=== PATIENT | male | born 1970 | race Hispanic/Latino ===

== ENCOUNTER 2016-08-28 05:49 | Emergency (ER) | payer OTHER ==
[~2016-08-28 05:49] MED LIST: Sodium Chloride 0.9% 100 ML BAG ONE; Sodium Chloride 0.9% 500 ML BAG ONE
[2016-08-28] MEDS ORDERED: Ondansetron HCl/PF 4 MG/2 ML Vial ONE (06:08)
[2016-08-28 06:36] LABS: #Basophils 0.2 thou/uL (0.0-0.2); #Eosinphils 0.1 thou/uL (0.0-0.7); #Monocytes 0.6 thou/uL (0.11-0.59); #Neutrophils 5.8 thou/uL (1.40-6.50); %Basophils 1.7 % (0.0-1.0); %Monocytes 6.1 % (0.0-10.0); %Neutrophils 60.1 % (42.0-75.0); Hemoglobin 14.5 g/dL (14.0-18.0); Mean Corpuscular HGB CONC 34.3 g/dL (32.0-36.0); Mean Corpuscular Hemoglobin 29.9 pg (27.0-31.0); Mean Corpuscular Volume 87.3 fl (80.0-94.0); Mean Platelet Volume 9.2 fL (7.4-10.4); Platelet Count 241 thou/uL (130-400); RBC Distribution Width 12.2 % (11.5-14.5); Red Blood Cell (RBC) Count 4.85 mill/uL (4.70-6.10); White Blood Cell (WBC) Count 9.6 thou/uL (4.8-10.8)
[2016-08-28 06:46] LABS: Bilirubin Negative (Negative); Blood, Urine Moderate (Negative); Clarity Clear (Clear); Glucose, Urine (Dipstick) >=1000 mg/dL (Negative); Leukocyte Trace (Negative); Nitrite Negative (Negative); Protein, Urine (Dipstick) Negative (Neg-Trace); Specific Gravity, Urine 1.015 (1.005-1.030); Urobilinogen 0.2 mg/dL (0.2-1.0); pH, Urine 5.5 (5.0-9.0)
[2016-08-28 06:48] LABS: Bacteria/HPF 1+ HPF (None Seen); Squamous Epithelial 0-3 HPF (0-3)
[2016-08-28 06:50] LABS: ALT (SGPT) 13 U/L (0-55); AST (SGOT) 9 U/L (5-34); Albumin 3.4 g/dL (3.5-5.0); Alkaline Phosphatase 125 U/L (40-150); Anion Gap 15 mmol/L (10-20); BUN (Urea Nitrogen) 11 mg/dL (8.9-20.6); Bilirubin, Total 0.4 mg/dL (0.2-1.2); Calc. Creatinine Clearance 0 mL/min (70-130); Calcium 8.7 mg/dL (7.8-10.44); Carbon Dioxide 21 mmol/L (22-29); Chloride 101 mmol/L (98-107); Estimated GFR-MDRD Greater than 90; Glucose 325 mg/dL (70-105); Potassium 3.9 mmol/L (3.5-5.1); Protein, Total 6.4 g/dL (6.0-8.3); Sodium 133 mmol/L (136-145)
[2016-08-28] MEDS ORDERED: Potassium Chloride 20 MEQ TAB ONE (07:02)
[2016-08-28] MEDS ORDERED: Insulin Regular 300 UNITS/3 ML VIAL ONE (07:02)
[2016-08-28] MEDS ORDERED: cefTRIAXone\\ROCEPHIN 1 GM VIAL ONE (07:02)
[2016-08-28 07:06] LABS: Amphetamine Not Detected (NotDetected); Barbiturates Screen Not Detected (NotDetected); Benzodiazepine Screen Not Detected (NotDetected); Cocaine Metabolite Screen Not Detected (NotDetected); Medtox Control Line Valid? VALID (VALID); Methadone Not Detected (NotDetected); Methamphetamine Not Detected (NotDetected); Opiate Screen Not Detected (NotDetected); Oxycodone Screen Not Detected (NotDetected); Phencyclidine (PCP) Not Detected (NotDetected); THC/Cannabinoid Screen Not Detected (NotDetected); Tricyclic Screen Not Detected (NotDetected)
[2016-08-28 07:35] LABS: CKMB 1.3 ng/mL (0-6.6); Troponin I Less than 0.010 ng/mL (< 0.028)
--- NOTE | 2016-08-28 07:40 | PICIS ---
[facility] EMERGENCY RECORD TRIAGE (05:55 JDEA) TRIAGE NOTES: pt states both ears hurt. (05:55 JDEA) PATIENT: NAME: Rosetta Malhotra, AGE: 46, GENDER: male, : Sat1970, TIME OF GREET: SatAug 28, 2016 05:49, PREFERRED LANGUAGE: Romanian, ETHNICITY: or , FALL RISK: YES, ECODE BILLING MAP: [facility], SSN: [id number], Zip Code: [address], KG WEIGHT: 95.25, PHONE: MSG#, , , PERSON ID: [id number], PCP: none. (05:55 JDEA) COMPLAINT: Ear Pain. (05:55 JDEA) ADMISSION: URGENCY: 4 Non Urgent, ADMISSION SOURCE: Home, TRANSPORT: Walk-in, BED: TRIAGE. (05:55 JDEA) IMMUNIZATIONS: Flu vaccine not up to date, Tetanus not up to date, Pneumococcal vaccine not up to date. (05:56 JDEA) TRIAGE SCREENING: Patient denies suicidal ideation, Patient denies presence of domestic violence. (05:56 JDEA) PROVIDERS: TRIAGE NURSE: Angelina Ballard RN. (05:55 JDEA) VITAL SIGNS: BP 127/94, Pulse 100, Resp 20, Temp 98.8, (Oral), Pain 8, O2 Sat 100, on Room Air, Time 08/28/2016 05:54. (05:54 JDEA) PREVIOUS VISIT ALLERGIES: No Known Drug Allergies. (05:55 JDEA) No Known Drug Allergies. (05:56 JDEA) KNOWN ALLERGIES No Known Drug Allergies CURRENT MEDICATIONS (05:55 JDEA) diabetes medication VITAL SIGNS VITAL SIGNS: BP: 127/94, Pulse: 100, Resp: 20, Temp: 98.8 (Oral), Pain: 8, O2 sat: 100 on Room Air, Time: 08/28/2016 05:54. (05:54 JDEA) BP: 114/75, Pulse: 76, Resp: 18, O2 sat: 98 on Room Air, Time: 08/28/2016 06:59. (06:59 SFRE) BP: 117/68, Pulse: 73, Resp: 18, Temp: 98.7, Pain: 0, O2 sat: 99 on RA, Time: 08/28/2016 07:29. (07:29 SFRE) NURSING ASSESSMENT: ENT (05:57 JDEA) CONSTITUTIONAL: Complex assessment performed, Patient arrives ambulatory, Gait steady, History obtained from patient, Patient appears comfortable, Patient cooperative, Patient alert, Oriented to person, place and time, Skin warm, Skin dry, Skin normal in color, Mucous membranes pink, Mucous membranes moist, Patient complains of bilateral ear pain, pt states has pain in both of his ears since this morning, states that it is making him dizzy. PAIN: aching pain, to bilateral ears, constant, on a scale 0-10 patient rates pain as 8. ENT: Ear assessment findings include ear normal to inspection, Nasal assessment findings include nose normal to inspection, Sinuses &a-1R&a+25V*p+0X*s0258W*c202B*c15G*c2P*p-0X&a-25V&a+1R Name: Rosetta Malhotra : 1970 M46 MedRec: [id number] AcctNum: [id number] Prepared: SatAug 28, 2016 09:36 by Interface Page 1 of 14 pMD [facility] EMERGENCY RECORD normal, Nasal mucosa normal, Mouth and throat assessment findings include mouth inspection normal, Uvula normal, Tonsils normal, Mucous membranes pink, and moist, Able to swallow, Speech normal, no associated fever, no associated headache. RESPIRATORY/CHEST: Breath sounds clear, Respiratory assessment findings include respiratory effort easy, Respirations regular, Conversing normally, Neck and chest exam findings include trachea midline, Chest expansion equal, Chest movement symmetrical, no signs of distress, no associated cough noted, no associated fever. NOTES: Patient tolerated procedure well. SAFETY: Side rails up, Cart/Stretcher in lowest position, Call light within reach, Hospital ID band on. NURSING PROCEDURE: BEDSIDE TESTING (06:07 JDEA) PATIENT IDENTIFIER: Patient actively involved in identification process, Patient's identity verified by hospital ID bracelet. GLUCOSE: Glucose testing indicated for diabetic patient, Capillary blood sample, Result (mg/dl) 318. FOLLOW-UP: After procedure, results given to Dr. MD Stack. SAFETY: Side rails up, Cart/Stretcher in lowest position, Call light within reach, Hospital ID band on. NURSING PROCEDURE: HOTEL MAINTENANCE TECHNICIAN (:DE) PATIENT IDENTIFIER: Patient actively involved in identification process, Patient's identity verified by hospital ID shira. HOTEL MAINTENANCE TECHNICIAN: Cardiac monitoring indicated for er indication, Patient placed on call center operations manager, Patient placed on non-invasive blood pressure monitor, Patient placed on continuous pulse oximetry. FOLLOW-UP: After procedure, alarms set and on. NOTES: Patient tolerated procedure well. NURSING PROCEDURE: DISCHARGE NOTE (:29 SFRE) DISCHARGE: Patient discharged to home, ambulating without assistance, driving self, unaccompanied, Summary of Care printed/ provided, Patient requested and was provided an electronic copy of Discharge Instructions, Discharge instructions given to patient, Simple or moderate discharge teaching performed, by ANNMARIE JAIMES, F/U WITH PCP. RX DIRECTED. RETURN TO ED NEEDED FOR NEW/CONCERNING OR WORSENING SYMPTOMS., Prescriptions given and instructions on side effects given, Name of prescription(s) given: BACTRIM, ZOFRAN, Above person(s) verbalized understanding of discharge instructions and follow-up care. VITAL SIGNS: BP: 117, / 68, Pulse: 73, Resp: 18, Temp: 98.7, Pain: 0, O2 sat: 99, on: RA. NURSING PROCEDURE: EKG CHART (:DE) PATIENT IDENTIFIER: Patient actively involved in identification process, Patient's identity verified by hospital ID shira. EKG: EKG indicated for er indication, 12 lead EKG performed on the left chest, done by Jasmyn, EKG. &a-1R&a+25V*p+0X*p1822S*c202B*c15G*c2P*p-0X&a-25V&a+1R Name: Rosetta Malhotra : 1970 M46 MedRec: [id number] AcctNum: [id number] Prepared: SatAug 28, 2016 09:36 by Interface Page 2 of 14 pMD [facility] EMERGENCY RECORD FOLLOW-UP: After procedure, EKG for interpretation given to Dr. MD Stack. NOTES: Patient tolerated procedure well. SAFETY: Side rails up, Cart/Stretcher in lowest position, Call light within reach, Hospital ID band on. NURSING PROCEDURE: IV (06:29 JDEA) PATIENT IDENITIFIER: Patient actively involved in identification process, Patient's identity verified by hospital ID bracelet. IV SITE 1: IV therapy indicated for hydration, IV therapy indicated for medication administration, IV established, to the left forearm, using an 18 gauge catheter, in one attempt, Saline lock established, Flushed with normal saline (mls): 10mls, Labs drawn at time of placement, labeled in the presence of the patient and sent to lab. FOLLOW-UP SITE 1: After procedure, 2x3 ensure dressing applied, After procedure, no drainage at IV site, After procedure, no swelling at IV site, After procedure, no redness at IV site. NURSING PROCEDURE: NURSE NOTES NURSES NOTES: Notes: report to Maranda RN at this time, states aware awaiting pending labs at this time, states giving the pt a urinal at this time for urine collection. denies needs for further assist at this time. (06:30 JDEA) Patient in no apparent distress, Notes: patient refuses to answer my questions about pain and general assessment questions. ambulatory to br to provide ua specimen. (06:36 SFRE) NURSING PROCEDURE: URINE COLLECTION (06:33 SFRE) URINE COLLECTION MALE: Urine collected by void, output amount (mL) 100, urine yellow in color, and clear, Specimen labeled in the presence of the patient and sent to lab, Specimen obtained for culture labeled in the presence of the patient and sent to lab. ORDER DETAILS Order Name: Accucheck, Status: Done, Time: 06:06 08/28/2016, User: MADI, - Ordered for: MD Stack Lefayne, - Entered by: MD Stack Lefayne - Tue Aug 28, 2016 06:04, - Quantity: 1, Order Name: HOTEL MAINTENANCE TECHNICIAN ED, Status: Done, Time: 06:06 08/28/2016, User: MADI, - Ordered for: MD Stack Lefayne, - Entered by: MD Stack Lefayne - Tue Aug 28, 2016 06:04, - Quantity: 1, Order Name: Cardiac Profile w/CKMB & Troponin - I, Status: Active, Time: 06:04 08/28/2016, User: MANOD, - Ordered for: MD Stack Lefayne, - Entered by: MD Stack Lefayne - SatAug 28, 2016 06:04, &a-1R&a+25V*p+0X*q4947J*c202B*c15G*c2P*p-0X&a-25V&a+1R Name: Rosetta Malhotra : 1970 M46 MedRec: [id number] AcctNum: [id number] Prepared: SatAug 28, 2016 09:36 by Interface Page 3 of 14 D [facility] EMERGENCY RECORD - Quantity: 1, Order Name: CBC with Differential, Status: Active, Time: 06:04 08/28/2016, User: CAEASR, - Ordered for: MD Stack Lefayne, - Entered by: MD Stack Lefayne - SatAug 28, 2016 06:04, - Quantity: 1, Order Name: Comprehensive Metabolic Panel, Status: Active, Time: 06:04 08/28/2016, User: CAESAR, - Ordered for: MD Stack Lefayne, - Entered by: MD Stack Lefayne - SatAug 28, 2016 06:04, - Quantity: 1, Order Name: Culture, Urine, Status: Active, Time: 07:00 08/28/2016, User: CAESAR, - Ordered for: MD Stack Lefayne, - Entered by: MD Stack Lefayne - SatAug 28, 2016 07:00, - Quantity: 1, Order Name: Drug Screen, Urine, Status: Active, Time: 06:15 08/28/2016, User: CAESAR, - Ordered for: MD Stack Lefayne, - Entered by: MD Stack Lefayne - pato Aug 28, 2016 06:15, - Quantity: 1, Order Name: EKG 12 Lead in Emergency Room, Status: Active, Time: 06:04 08/28/2016, User: CAESAR, - Ordered for: MD Stack Lefayne, - Entered by: MD Stack Lefayne - Tue Aug 28, 2016 06:04, - Quantity: 1, Order Name: SALINE LOCK, Status: Done, Time: 06:28 08/28/2016, User: MADI, - Ordered for: MD Stack Lefayne, - Entered by: MD Stack Lefayne - Tue Aug 28, 2016 06:04, - Quantity: 1, Order Name: Urinalysis w/ Rflx Microscopic, Status: Active, Time: 06:05 08/28/2016, User: CAESAR, - Ordered for: MD Stack Lefayne, - Entered by: MD Stack Lefayne - Tue Aug 28, 2016 06:05, - Quantity: 1. MEDICATION ADMINISTRATION SUMMARY Drug Name: Rocephin intravenous, Dose Ordered: 1 g, Route: IV Push, Status: Given, Time: 07:11 08/28/2016, Drug Name: potassium chloride oral, Dose Ordered: 20 mEq, Route: Oral, Status: Given, Time: 07:11 08/28/2016, Drug Name: HumuLIN R, Dose Ordered: 4 units, Route: Subcutaneous, Status: Given, Time: 07:10 08/28/2016, Drug Name: *Normal Saline, Dose Ordered: 500 mL, Route: IV Fluid Infusion, Status: Given, Time: 07:10 08/28/2016, Drug Name: Zofran intravenous, Dose Ordered: 8 mg, Route: IV Push, Status: Given, Time: 06:28 08/28/2016, Drug Name: *Normal Saline, Dose Ordered: 500 mL, Route: IV Fluid &a-1R&a+25V*p+0X*l1522E*c202B*c15G*c2P*p-0X&a-25V&a+1R Name: Rosetta Malhotra : 1970 M46 MedRec: [id number] AcctNum: [id number] Prepared: SatAug 28, 2016 09:36 by Interface Page 4 of 14 pMD [facility] EMERGENCY RECORD Infusion, Status: Given, Time: 06:27 08/28/2016, *Additional information available in notes, Detailed record available in Medication Service section. MEDICATION SERVICE HumuLIN R: Order: HumuLIN R (insulin regular, human) - Dose: 4 units : Subcutaneous Ordered by: Nimesh Stack MD Entered by: Nimesh Stack MD SatAug 28, 2016 06:59 Documented as given by: Jody Perez RN SatAug 28, 2016 07:10 Patient, Medication, Dose, Route and Time verified prior to administration. Amount given: 4units, Medication administered to left upper arm, Correct patient, time, route, dose and medication confirmed prior to administration, Patient advised of actions and side-effects prior to administration, Allergies confirmed and medications reviewed prior to administration, Advised not to ambulate without assistance, Patient in position of comfort, Side rails up, Cart in lowest position. Normal Saline: Order: Normal Saline (0.9 % sodium chloride) - Dose: 500 mL : IV Fluid Infusion Notes: BOLUS, THEN 250 ML/HR Ordered by: Nimesh Stack MD Entered by: Nimesh Stack MD SatAug 28, 2016 06:05 , Acknowledged by: Angelina Ballard RN SatAug 28, 2016 06:07 Documented as given by: Angelina Ballard RN SatAug 28, 2016 06:27 Patient, Medication, Dose, Route and Time verified prior to administration. Amount given: 500mls, IV SITE #1 IV fluids established for hydration, Connections checked prior to administration, Line traced prior to administration, Catheter placement confirmed via flush prior to administration, IV site without signs or symptoms of infiltration during medication administration, No swelling during administration, No drainage during administration, IV flushed after administration, Correct patient, time, route, dose and medication confirmed prior to administration, Patient advised of actions and side-effects prior to administration, Allergies confirmed and medications reviewed prior to administration, Patient in position of comfort, Side rails up, Cart in lowest position, Call light in reach. : Follow Up : Site inspection shows, No swelling at administration site, No drainage at administration site, No bleeding at site, No bruising noted at site, _IV SITE #1:_, IV fluid infusion discontinued, on SatAug 28, 2016 07:12, 45 minutes, ., Total amount infused: 500ml, IV Line flushed after administration. (07:10 SFRE) Normal Saline: Order: Normal Saline (0.9 % sodium chloride) - Dose: 500 mL : IV Fluid Infusion Notes: REPEAT FOR TOTAL OF 1 LITER IV Ordered by: Nimesh Stack MD Entered by: Nimesh Stack MD SatAug 28, 2016 07:00 Documented as given by: Jody Perez RN SatAug 28, 2016 07:10 &a-1R&a+25V*p+0X*c0892E*c202B*c15G*c2P*p-0X&a-25V&a+1R Name: Rosetta Malhotra : 1970 M46 MedRec: [id number] AcctNum: [id number] Prepared: SatAug 28, 2016 09:36 by Interface Page 5 of 14 pMD [facility] EMERGENCY RECORD Patient, Medication, Dose, Route and Time verified prior to administration. Amount given: 500ml, IV SITE #1 IV fluids established for hydration, IV SITE #1 into left forearm, IV SITE #1 2nd bag hung, amount 500ml hung, IV SITE #1 bolus of 500 ml established, IV SITE #1 Rate of bolus, wide open, via primary tubing, Awake and alert- acceptable, Catheter placement confirmed via flush prior to administration, IV site without signs or symptoms of infiltration during medication administration, No swelling during administration, No drainage during administration, IV flushed after administration, Correct patient, time, route, dose and medication confirmed prior to administration, Patient advised of actions and side-effects prior to administration, Allergies confirmed and medications reviewed prior to administration, Patient in position of comfort, Side rails up, Cart in lowest position. : Follow Up : Response assessment performed, No signs or symptoms of allergic reaction noted, Site inspection shows, No swelling at administration site, No drainage at administration site, No bleeding at site, No bruising noted at site, _IV SITE #1:_, IV fluid infusion discontinued, on SatAug 28, 2016 07:30, 20 minutes, ., Total amount infused: 500ML, IV Discontinued with catheter intact. (07:30 SFRE) potassium chloride oral: Order: potassium chloride oral (potassium chloride) - Dose: 20 mEq : Oral Ordered by: Nimesh Stack MD Entered by: Nimesh Stack MD SatAug 28, 2016 06:59 Documented as given by: Jody Perez RN SatAug 28, 2016 07:11 Patient, Medication, Dose, Route and Time verified prior to administration. Amount given: 20meq, Site: Medication administered P.O., Correct patient, time, route, dose and medication confirmed prior to administration, Patient advised of actions and side-effects prior to administration, Allergies confirmed and medications reviewed prior to administration, Patient in position of comfort, Side rails up, Cart in lowest position. Rocephin intravenous: Order: Rocephin intravenous (ceftriaxone sodium) - Dose: 1 g : IV Push Ordered by: Nimesh Stack MD Entered by: Nimesh Stack MD SatAug 28, 2016 06:58 Documented as given by: Jody Perez RN SatAug 28, 2016 07:11 Patient, Medication, Dose, Route and Time verified prior to administration. Amount given: 1g, IV SITE #1 IVPB or drip, initial infusion, IVPB mixed in: 100ml, Fluid: 0.9NS, on an IV pump, via secondary tubing, Awake and alert- acceptable, Catheter placement confirmed via flush prior to administration, IV site without signs or symptoms of infiltration during medication administration, No swelling during administration, No drainage during administration, IV flushed after administration, Correct patient, time, route, dose and medication confirmed prior to administration, Patient advised of actions and &a-1R&a+25V*p+0X*v8766E*c202B*c15G*c2P*p-0X&a-25V&a+1R Name: Rosetta Malhotra : 1970 M46 MedRec: [id number] AcctNum: [id number] Prepared: SatAug 28, 2016 09:36 by Interface Page 6 of 14 pMD [facility] EMERGENCY RECORD side-effects prior to administration, Allergies confirmed and medications reviewed prior to administration, Patient in position of comfort, Side rails up, Cart in lowest position. : Follow Up : Response assessment performed, No signs or symptoms of allergic reaction noted, Site inspection shows, No swelling at administration site, No drainage at administration site, No bleeding at site, No bruising noted at site, _IV SITE #1:_, Medication infusion discontinued, on SatAug 28, 2016 07:30, 20 minutes, ., Total amount infused: 1G, IV Discontinued with catheter intact, IV Line flushed after administration. [facility]07[facility]30 [facility] Zofran [facility]: Order: Zofran intravenous (ondansetron HCl) - Dose: 8 mg : IV Push Ordered by: Nimesh Stack MD Entered by: Nimesh Stack MD SatAug 28, 2016 06:05 , Acknowledged by: Angelina Ballard RN SatAug 28, 2016 06:07 Documented as given by: Angelina Ballard RN SatAug 28, 2016 06:28 Patient, Medication, Dose, Route and Time verified prior to administration. Amount given: 8mg, IV SITE #1 IVP, initial medication, Slowly, Connections checked prior to administration, Line traced prior to administration, Catheter placement confirmed via flush prior to administration, IV site without signs or symptoms of infiltration during medication administration, No swelling during administration, No drainage during administration, IV flushed after administration, Correct patient, time, route, dose and medication confirmed prior to administration, Patient advised of actions and side-effects prior to administration, Allergies confirmed and medications reviewed prior to administration, Patient in position of comfort, Side rails up, Cart in lowest position, Call light in reach. HPI WEAK-DIZZY CHIEF COMPLAINT: Patient presents for evaluation of dizziness, Patient presents for evaluation of lightheadedness. (06:09 LHOD) HISTORIAN: History provided by patient, PT POOR HISTORIAN. (06:09 LHOD) SEVERITY: REPORTED EAR PAIN OF 8 TO RN. REPORTS BUZZ IN EARS TO ME. (06:12 LHOD) TIME COURSE: LAST PM PT REPORTS HE WAS AT WORK AND STARTED FEELING DIZZY WITH BUZZING IN HIS EARS. REPORTS LAST HE FELT LIKE THIS "IT WAS MY SUGAR", BUT HE DOESN'T KNOW IF IT WAS HIGH OR LOW AT THAT TIME. PT TAKES METFORMIN FOR DIABETES BID. DENIES CHANGE IN DOSE OR OTHER MEDS. NO HEADACHE, JUST "BUZZING" IN EARS. HE TOLD RN HE HAD EAR PAINS. NAUSEA W/O VOMITING. NO CHEST PAIN. NO FEVER. (06:09 LHOD) ASSOCIATED WITH: No associated ataxia, No associated chest pain, No associated chills, Associated with ear pain, No associated fever, No associated gait disturbance, No associated headache, Associated with nausea, No associated palpitations, No associated vomiting, No associated visual changes. (06:13 LHOD) EXACERBATED BY: Patient's condition exacerbated by ambulating, Patient's condition exacerbated by &a-1R&a+25V*p+0X*y7599O*c202B*c15G*c2P*p-0X&a-25V&a+1R Name: Rosetta Malhotra : 1970 M46 MedRec: [id number] AcctNum: [id number] Prepared: SatAug 28, 2016 09:36 by Interface Page 7 of 14 pMD [facility] EMERGENCY RECORD STANDING. (06:13 LHOD) RELIEVED BY: Patient's condition relieved by nothing because patient has not tried anything for relief. (06:14 LHOD) ROS (06:14 LHOD) CONSTITUTIONAL: Historian denies chills, denies fever. EYES: Negative eye review of systems, Historian denies vision changes. ENT: Negative ears, nose, throat review of systems. CARDIOVASCULAR: Historian denies chest pain, denies diaphoresis, denies dyspnea on exertion, denies syncope, denies palpitations. RESPIRATORY: Historian denies cough, denies shortness of breath. GI: Historian denies abdominal pain, denies diarrhea, denies melena, reports nausea, denies vomiting. GENITOURINARY MALE: Historian denies dysuria. MUSCULOSKELETAL: Negative musculoskeletal review of systems. SKIN: Historian denies rash. NEUROLOGIC: Historian reports dizziness, denies focal weakness, denies gait changes, denies headache. HEMO/LYMPHATIC: Historian denies easy bruising. NOTES: All systems reviewed, negative except as described above. PAST MEDICAL HISTORY MEDICAL HISTORY: HAS NO DOCTOR, Past medical history includes history of diabetes, Type II, NON COMPLIANT, Past medical history includes history of hypertension, NON COMPLIANT. (05:56 JDEA) MALE SURGICAL HISTORY: Surgical history of orthopedic surgery, B/L KNEES, Surgical history of tonsillectomy, Patient's surgical history is not relevant to the management of the case, Surgical history of orthopedic surgery, LEFT KNEE. (05:56 JDEA) PSYCHIATRIC HISTORY: No previous psychiatric history. (05:56 JDEA) SOCIAL HISTORY: Patient denies alcohol use, Patient denies drug use, Patient is a former tobacco user, smoked cigarettes, Lives at home, with family. (05:56 JDEA) NOTES: Nursing records reviewed, PT HAD 6 EMERGENCY DEPT VISITS IN 2016 FOR VARIOUS COMPLAINTS. TOLD RN HE COMES TO ER FOR HIS PRIMARY CARE. (05:57 LHOD) PHYSICAL EXAM CONSTITUTIONAL: Vital signs reviewed, Patient afebrile, Pulse normal, Blood pressure normal, Respiratory rate normal, Patient alert and oriented to person, place and time, PT DOES NOT MAKE EYE CONTACT. APPEARS UNCOMFORTABLE. (06:15 LHOD) HEAD: Head exam included findings of head atraumatic. (06:15 LHOD) EYES: Pupils equally round and reactive to light, Extraocular muscles intact. (06:15 LHOD) ENT: Ear exam included findings of, left external ear with &a-1R&a+25V*p+0X*l1820V*c202B*c15G*c2P*p-0X&a-25V&a+1R Name: Rosetta Malhotra : 1970 M46 MedRec: [id number] AcctNum: [id number] Prepared: SatAug 28, 2016 09:36 by Interface Page 8 of 14 pMD [facility] EMERGENCY RECORD impacted cerumen, Pharynx exam normal, Teeth with, dental caries, LEFT UPPER INCISOR OLD CHIP WITH DECAY. (06:15 LHOD) NECK: Neck exam normal, Neck exam included findings of normal range of motion, Trachea midline, no carotid bruits. (06:15 LHOD) RESPIRATORY CHEST: Respiratory exam included findings of no respiratory distress, Breath sounds clear. (06:15 LHOD) CARDIOVASCULAR: Cardiovascular exam included findings of heart rate regular rate and rhythm, Heart sounds normal. (06:15 LHOD) ABDOMEN MALE: Abdominal exam included findings of abdomen nontender. (06:15 LHOD) BACK: Back exam normal. (06:15 LHOD) UPPER EXTREMITY: Upper extremity exam normal. (06:15 LHOD) LOWER EXTREMITY: Lower extremity exam included findings of inspection normal, Range of motion normal. (06:15 LHOD) NEURO: Neuro exam findings include patient oriented to person, place and time, Speech normal, Memory normal, Cranial nerves intact, no focal motor deficits, no focal sensory deficits, no nystagmus. (06:15 LHOD) SKIN: LOWER ABDOMEN BILATERALLY SCABBED AREAS FROM PREVIOUS LOCAL ABSCESSES. (06:15 LHOD) NOTES: Notes: I WAS ABLE TO CLEAR SOME CERUMEN FROM LEFT EAR WITH LIGHTED CURRETTE, BUT INCOMPLETELY SINCE DEEP IMPACTION. (06:29 LHOD) LAB INTERPRETATION (07:08 LHOD) INTERPRETATION: I reviewed the lab results, CBC normal, Chemistry abnormal, Sodium decreased, Glucose elevated, Bicarbonate decreased, Urinalysis abnormal, positive for leukocytes, positive for erythrocytes, positive for bacteria, positive for glucose, Urine toxicology negative. EVENTS TRANSFER: Triage to Emergency Triage. (SatAug 28, 2016 05:55 JDEA) Emergency Triage to Main ED -05. (05:55 JDEA) Removed from Emergency Main ED -05. (07:32 SFRE) EKG INTERPRETATION (06:26 LHOD) 12 LEAD EKG INTERPRETATION: 12 lead EKG interpreted by Emergency Department Physician at time of study, 12 lead EKG shows normal sinus rhythm, Rate (beats per minute): 82, with no ectopics, T waves normal, Central normal, Q WAVE IN 111, OTHERWISE UNCHANGED FROM 2015. PROBLEM LIST No recorded problems DIAGNOSIS (07:05 LHOD) FINAL: PRIMARY: UTI--CYSTITIS, ADDITIONAL: &a-1R&a+25V*p+0X*j6591K*c202B*c15G*c2P*p-0X&a-25V&a+1R Name: Rosetta Malhotra : 1970 M46 MedRec: [id number] AcctNum: [id number] Prepared: SatAug 28, 2016 09:36 by Interface Page 9 of 14 pMD [facility] EMERGENCY RECORD HYPERGLYCEMIA RELATED TO NON-INSULIN DEPENDENT DIABETES, LEFT EAR CERUMEN IMPACTION, MILD DEHYDRATION FROM ELEVATED GLUCOSE. DISPOSITION PATIENT: Disposition Type: Discharge, Disposition: *Discharge Home, Condition: Good. (07:02 LHOD) Patient left the department. (07:32 SFRE) INSTRUCTION (07:05 LHOD) DISCHARGE: DIABETIC HYPERGLYCEMIA, UTI CYSTITIS MALE ADULT, CERUMEN IMPACTION, HOME CARE. FOLLOWUP: Follow up with Primary Care Physician in 7-10 days. SPECIAL: FOLLOW UP WITH CLINIC OR PRIMARY DOCTOR IN 1 WEEK. RETURN IF WORSE. PRESCRIPTION (07:03 LHOD) Bactrim DS: TABLET : 800 mg-160 mg : ORAL : Quantity: 1 Unit: tab(s) Route: ORAL Schedule: 2 times a day Dispense: 20 May substitute. Refills: No Refills . NOTES: No Refills. Zofran ODT: TABLET, RAPID DISSOLVE : 8 mg : ORAL : Quantity: 1 Unit: tab(s) Route: ORAL Schedule: every 6 hours PRN Dispense: 3 May substitute. Refills: 2 . NOTES: ^s=No Refills No Refills. IMAGING WORK NOTE: Image captured from scanner. (07:14 SFRE) *EKG: Image captured from scanner. (07:16 SFRE) *DISCHARGE INSTRUCTIONS RECEIPT: Image captured from scanner. (07:29 SFRE) *SUPPLY CHARGE SHEET: Image captured from scanner. (07:30 SFRE) ADMIN DIGITAL SIGNATURE: ANNMARIE Perez, Jody. (07:31 SFRE) MD Seda, Nimesh. (09:27 LHOD) RESULTS LABORATORY: [place] Collection DT: SatAug 28, 2016 06:12, *Accuc[place]k 318 - H mg/dL, Range (70-110). (06:15 LHOD) Urinalysis w/ Rflx Microscopic Collection DT: SatAug 28, 2016 06:43, Color Yellow , Range (Yellow), Clarity Clear , Range (Clear), Specific [place], Urine 1.015 , Range (1.005-1.030), pH, Urine 5.5 , Range (5.0-9.0), *Leukocyte Trace - H , Range (Negative), Nitrite Negative , Range (Negative), Protein, Urine (Dipstick) Negative mg/dL, Range (Neg-Trace), *Glucose, Urine (Dipstick) >=1000 - H mg/dL, Range (Negative), &a-1R&a+25V*p+0X*[id number]*c202B*c15G*c2P*p-0X&a-25V&a+1R Name: Rosetta Malhotra : 1970 M46 MedRec: [id number] AcctNum: [id number] Prepared: SatAug 28, 2016 09:36 by Interface Page 10 of 14 pMD [facility] EMERGENCY RECORD Ketone, Urine Negative mg/dL, Range (Negative), Urobilinogen 0.2 mg/dL, Range (0.2-1.0), Bilirubin Negative , Range (Negative), *Blood, Urine Moderate - H , Range (Negative). (06:49 SFRE) CBC with Differential Collection DT: SatAug 28, 2016 06:29, See comment below , COLLECTED BY AGNELINA BALLARD RN, White Blood Cell (WBC) Count 9.6 thou/uL, Range (4.8-10.8), Red Blood Cell (RBC) Count 4.85 mill/uL, Range (4.70-6.10), Hemoglobin 14.5 g/dL, Range (14.0-18.0), Hematocrit 42.3 %, Range (42.0-52.0), Mean Corpuscular Volume 87.3 fl, Range (80.0-94.0), Mean Corpuscular Hemoglobin 29.9 pg, Range (27.0-31.0), Mean Corpuscular HGB CONC 34.3 g/dL, Range (32.0-36.0), RBC Distribution Width 12.2 %, Range (11.5-14.5), Platelet Count 241 thou/uL, Range (130-400), Mean Platelet Volume 9.2 fL, Range (7.4-10.4), %Neutrophils 60.1 %, Range (42.0-75.0), %Lymphocytes 31.0 %, Range (21.0-51.0), %Monocytes 6.1 %, Range (0.0-10.0), %Eosinophils 1.0 %, Range (0.0-10.0), *%Basophils 1.7 - H %, Range (0.0-1.0), #Neutrophils 5.8 thou/uL, Range (1.40-6.50), #Lymphocytes 3.0 thou/uL, Range (1.20-3.40), *#Monocytes 0.6 - H thou/uL, Range (0.11-0.59), #Eosinphils 0.1 thou/uL, Range (0.0-0.7), #Basophils 0.2 thou/uL, Range (0.0-0.2). (06:49 SFRE) Urine Microscopic Collection DT: SatAug 28, 2016 06:43, *RBC/HPF 7-10 - H HPF, Range (0-3), *WBC/HPF 11-20 - H HPF, Range (0-3), Squamous Epithelial 0-3 HPF, Range (0-3), *Bacteria/HPF 1+ - H HPF, Range (None Seen). (06:52 LHOD) Urinalysis w/ Rflx Microscopic Collection DT: SatAug 28, 2016 06:43, Color Yellow , Range (Yellow), Clarity Clear , Range (Clear), Specific [place], Urine 1.015 , Range (1.005-1.030), pH, Urine 5.5 , Range (5.0-9.0), *Leukocyte Trace - H , Range (Negative), Nitrite Negative , Range (Negative), Protein, Urine (Dipstick) Negative mg/dL, Range (Neg-Trace), *Glucose, Urine (Dipstick) >=1000 - H mg/dL, Range (Negative), Ketone, Urine Negative mg/dL, Range (Negative), Urobilinogen 0.2 mg/dL, Range (0.2-1.0), Bilirubin Negative , Range (Negative), *Blood, Urine Moderate - H , Range (Negative). (06:52 LHOD) Comprehensive Metabolic Panel Collection DT: SatAug 28, 2016 06:29, See comment below , COLLECTED BY ANGELINA BALLARD RN, *Sodium 133 - L mmol/L, Range (136-145), Potassium 3.9 mmol/L, Range (3.5-5.1), Chloride 101 mmol/L, Range (98-107), *Carbon Dioxide 21 - L mmol/L, Range (22-29), &a-1R&a+25V*p+0X*[id number]*c202B*c15G*c2P*p-0X&a-25V&a+1R Name: Rosetta Malhotra : 1970 M46 MedRec: [id number] AcctNum: [id number] Prepared: SatAug 28, 2016 09:36 by Interface Page 11 of 14 pMD [facility] EMERGENCY RECORD Anion Gap 15 mmol/L, Range (10-20), BUN (Urea Nitrogen) 11 mg/dL, Range (8.9-20.6), Creatinine 0.71 mg/dL, Range (0.7-1.3), Estimated GFR-MDRD Greater than 90 , Reference Range for Estimated GFR: Greater than 90, mL/min/1.73 m2 NOTE: The MDRD equation has not been validated for use, with the elderly (over 70 years of age), women, patients with, serious comorbid condition or persons with extremes of body size, muscle, mass, or nutritional status. , *Glucose 325 - H mg/dL, Range (70-105), Calcium 8.7 mg/dL, Range (7.8-10.44), Bilirubin, Total 0.4 mg/dL, Range (0.2-1.2), Protein, Total 6.4 g/dL, Range (6.0-8.3), NOTE: Plasma values are generally 0.3 to 0.5 g/dL higher than serum values, due to the presence of fibrinogen. , *Albumin 3.4 - L g/dL, Range (3.5-5.0), Globulin 3.0 g/dL, Range (2.4-3.5), *Alb/Glob Ratio 1.1 - L g/dL, Range (1.2-2.2), Alkaline Phosphatase 125 U/L, Range (40-150), AST (SGOT) 9 U/L, Range (5-34), ALT (SGPT) 13 U/L, Range (0-55). (06:55 LHOD) Drug Screen, Urine Collection DT: SatAug 28, 2016 07:05, THC/Cannabinoid Screen Not Detected , Range (NotDetected), Phencyclidine (PCP) Not Detected , Range (NotDetected), Cocaine Metabolite Screen Not Detected , Range (NotDetected), Methamphetamine Not Detected , Range (NotDetected), Opiate Screen Not Detected , Range (NotDetected), Amphetamine Not Detected , Range (NotDetected), Benzodiazepine Screen Not Detected , Range (NotDetected), Tricyclic Screen Not Detected , Range (NotDetected), Methadone Not Detected , Range (NotDetected), Barbiturates Screen Not Detected , Range (NotDetected), Oxycodone Screen Not Detected , Range (NotDetected), Propoxyphene Screen Not Detected , Range (NotDetected), Drug Screen Cutoff , Range (), The Just Got[employer] Make It Advertising Profile-V Panel for Qualitative Drugs of Abuse assays are for, presumptive screening testing only. The drug class and detection limits, are as follows: Drug Class Detection Limit Amphetamine , 500 ng/mL* Barbiturates 200 ng/mL , Benzodiazepines 150 ng/mL* Cocaine 150 ng/mL*, Methamphetamine 500 ng/mL* Methadone 200, ng/mL* Opiates 100 ng/mL* &a-1R&a+25V*p+0X*[id number]*c202B*c15G*c2P*p-0X&a-25V&a+1R Name: Rosetta Malhotra : 1970 M46 MedRec: [id number] AcctNum: [id number] Prepared: SatAug 28, 2016 09:36 by Interface Page 12 of 14 pMD [facility] EMERGENCY RECORD Oxycodone , 100 ng/mL PCP 25 ng/mL Propoxyphene , 300 ng/mL Tricyclic Antidepressants 300 ng/mL Cannabinoids (THC) , 50 ng/mL Tests which yield a presumptive positive result must be , tested using a more specific alternate chemical method in order to obtain, a confirmed analytical result. Additional confirmation and identification, may be ordered on a routine basis, if desired. Presumptive positive urines, are held for two weeks. . (07:08 LHOD) Drug Screen, Urine Collection DT: SatAug 28, 2016 07:05, THC/Cannabinoid Screen Not Detected , Range (NotDetected), Phencyclidine (PCP) Not Detected , Range (NotDetected), Cocaine Metabolite Screen Not Detected , Range (NotDetected), Methamphetamine Not Detected , Range (NotDetected), Opiate Screen Not Detected , Range (NotDetected), Amphetamine Not Detected , Range (NotDetected), Benzodiazepine Screen Not Detected , Range (NotDetected), Tricyclic Screen Not Detected , Range (NotDetected), Methadone Not Detected , Range (NotDetected), Barbiturates Screen Not Detected , Range (NotDetected), Oxycodone Screen Not Detected , Range (NotDetected), Propoxyphene Screen Not Detected , Range (NotDetected), Drug Screen Cutoff , Range (), The Just Got[employer] Make It Advertising Profile-V Panel for Qualitative Drugs of Abuse assays are for, presumptive screening testing only. The drug class and detection limits, are as follows: Drug Class Detection Limit Amphetamine , 500 ng/mL* Barbiturates 200 ng/mL , Benzodiazepines 150 ng/mL* Cocaine 150 ng/mL*, Methamphetamine 500 ng/mL* Methadone 200, ng/mL* Opiates 100 ng/mL* Oxycodone , 100 ng/mL PCP 25 ng/mL Propoxyphene , 300 ng/mL Tricyclic Antidepressants 300 ng/mL Cannabinoids (THC) , 50 ng/mL Tests which yield a presumptive positive result must be , tested using a more specific alternate chemical method in order to obtain, a confirmed analytical result. Additional confirmation and identification, may be ordered on a routine basis, if desired. Presumptive positive urines, are held for &a-1R&a+25V*p+0X*r6195R*c202B*c15G*c2P*p-0X&a-25V&a+1R Name: Rosetta Malhotra : 1970 M46 MedRec: [id number] AcctNum: [id number] Prepared: SatAug 28, 2016 09:36 by Interface Page 13 of 14 pMD [facility] EMERGENCY RECORD two weeks. . (07:08 LHOD) Drug Screen, Urine Collection DT: SatAug 28, 2016 07:05, THC/Cannabinoid Screen Not Detected , Range (NotDetected), Phencyclidine (PCP) Not Detected , Range (NotDetected), Cocaine Metabolite Screen Not Detected , Range (NotDetected), Methamphetamine Not Detected , Range (NotDetected), Opiate Screen Not Detected , Range (NotDetected), Amphetamine Not Detected , Range (NotDetected), Benzodiazepine Screen Not Detected , Range (NotDetected), Tricyclic Screen Not Detected , Range (NotDetected), Methadone Not Detected , Range (NotDetected), Barbiturates Screen Not Detected , Range (NotDetected), Oxycodone Screen Not Detected , Range (NotDetected), Propoxyphene Screen Not Detected , Range (NotDetected), Drug Screen Cutoff , Range (), The Just Gotta Make It Advertising Profile-V Panel for Qualitative Drugs of Abuse assays are for, presumptive screening testing only. The drug class and detection limits, are as follows: Drug Class Detection Limit Amphetamine , 500 ng/mL* Barbiturates 200 ng/mL , Benzodiazepines 150 ng/mL* Cocaine 150 ng/mL*, Methamphetamine 500 ng/mL* Methadone 200, ng/mL* Opiates 100 ng/mL* Oxycodone , 100 ng/mL PCP 25 ng/mL Propoxyphene , 300 ng/mL Tricyclic Antidepressants 300 ng/mL Cannabinoids (THC) , 50 ng/mL Tests which yield a presumptive positive result must be , tested using a more specific alternate chemical method in order to obtain, a confirmed analytical result. Additional confirmation and identification, may be ordered on a routine basis, if desired. Presumptive positive urines, are held for two weeks. . (07:08 LHOD) Perdomo: MADI=ANNMARIE Ballard, Angelina LHOD=MD Seda, Nimesh ELIAS=ANNMARIE Perez, Jody &a-1R&a+25V*p+0X*[id number]*c202B*c15G*c2P*p-0X&a-25V&a+1R Name: Rosetta Malhotra : 1970 M46 MedRec: [id number] AcctNum: [id number] Prepared: Lisandro Aug 28, 2016 09:36 by Interface Page 14 of 14 pMGarrett GRAY
== END 2016-08-28 07:30 | disposition home or self-care (01) ==
LOC: MADERS 05:49
DX: N30.90 Cystitis, unspecified without hematuria (principal); E11.65 Type 2 diabetes mellitus with hyperglycemia; H61.22 Impacted cerumen, left ear; E86.0 Dehydration; I10 Essential (primary) hypertension; Z87.891 Personal history of nicotine dependence
CPT/HCPCS: 36416; 80053; 80306; 81003; 81015; 82553; 84484; 85025; 87086; 93005; 96361; 96365; 96372; 96375; J0696; J1815; J2405; J7050

== ENCOUNTER 2016-12-27 05:14 | Emergency (ER) | payer OTHER ==
[2016-12-27] MEDS ORDERED: cefTRIAXone\\ROCEPHIN 1 GM VIAL ONE (05:51)
[2016-12-27] MEDS ORDERED: Phenergan/Codeine 10-6.25mg/5ml UDCUP ONE ×2 (05:51→05:53)
[2016-12-27] MEDS ORDERED: Ketorolac Tromethamine 30 MG/ML VIAL ONE (05:54)
[2016-12-27] MEDS ORDERED: Ondansetron HCl/PF 4 MG/2 ML Vial ONE (05:54)
[2016-12-27] MEDS ORDERED: Dexamethasone 10 MG/ML VIAL ONE (05:54)
[2016-12-27 06:18] LABS: #Basophils 0.2 thou/uL (0.0-0.2); #Eosinphils 0.2 thou/uL (0.0-0.7); #Lymphocytes 3.7 thou/uL (1.20-3.40); #Monocytes 0.5 thou/uL (0.11-0.59); %Basophils 2.3 % (0.0-1.0); %Eosinophils 1.9 % (0.0-10.0); %Lymphocytes 43.2 % (21.0-51.0); %Monocytes 6.1 % (0.0-10.0); %Neutrophils 46.6 % (42.0-75.0); Hemoglobin 15.2 g/dL (14.0-18.0); Mean Corpuscular HGB CONC 32.7 g/dL (32.0-36.0); Mean Corpuscular Hemoglobin 29.1 pg (27.0-31.0); Mean Corpuscular Volume 89.1 fl (80.0-94.0); Mean Platelet Volume 9.6 fL (7.4-10.4); Platelet Count 194 thou/uL (130-400); RBC Distribution Width 12.1 % (11.5-14.5); Red Blood Cell (RBC) Count 5.21 mill/uL (4.70-6.10); White Blood Cell (WBC) Count 8.7 thou/uL (4.8-10.8)
[2016-12-27 06:23] LABS: Prothrombin Time 13.1 SEC (12.0-14.7)
[2016-12-27 06:36] LABS: ALT (SGPT) 12 U/L (8-55); AST (SGOT) 9 U/L (5-34); Albumin 3.5 g/dL (3.5-5.0); Alkaline Phosphatase 129 U/L (40-150); Anion Gap 13 mmol/L (10-20); BUN (Urea Nitrogen) 12 mg/dL (8.9-20.6); Bilirubin, Total 0.4 mg/dL (0.2-1.2); CK (CPK) 25 U/L (30-200); Calc. Creatinine Clearance 0 mL/min (70-130); Calcium 9.1 mg/dL (7.8-10.44); Carbon Dioxide 24 mmol/L (22-29); Chloride 99 mmol/L (98-107); Estimated GFR-MDRD Greater than 90; Globulin 3.5 g/dL (2.4-3.5); Glucose 309 mg/dL (70-105); Potassium 4.1 mmol/L (3.5-5.1); Sodium 132 mmol/L (136-145)
[2016-12-27 06:38] LABS: CKMB 0.9 ng/mL (0-6.6); Troponin I Less than 0.010 ng/mL (< 0.028)
--- NOTE | 2016-12-27 08:10 | RAD ---
CHEST 1 VIEW: HISTORY: Cough. COMPARISON: 02/18/16. FINDINGS: The cardiac silhouette is magnified by projection. Shallow inspiration accentuates the pulmonary ma rkings. Slight elevation of the right hemidiaphragm is stable. Mediastinum is midline. There I no confluent airspace consolidation or evidence of pneumothorax. front desk monitor leads overlie the ch est. IMPRESSION: No active cardiopulmonary abnormalities are demonstrated. POS: [facility]
[2016-12-27] MEDS ORDERED: Sodium Chloride 0.9% 1,000 ML BAG ONE (13:50)
[2016-12-27] MEDS ORDERED: Sodium Chloride 0.9% 100 ML BAG ONE (13:50)
== END 2016-12-27 07:45 | disposition home or self-care (01) ==
LOC: MADERS 05:14
DX: J20.9 Acute bronchitis, unspecified (principal); E11.9 Type 2 diabetes mellitus without complications; I10 Essential (primary) hypertension; Z87.891 Personal history of nicotine dependence
CPT/HCPCS: 36416; 71010; 80053; 82553; 83880; 84484; 85025; 85610; 86140; 87040; 87081; 87430; 93005; 94640; 96365; 96375; J0696; J1100; J1885; J2405; J7050; J7620

== ENCOUNTER 2017-04-24 01:32 | Emergency (ER) | payer OTHER ==
[2017-04-24] MEDS ORDERED: Benzonatate 100 MG CAP ONE (02:30)
[2017-04-24] MEDS ORDERED: Naproxen 500 MG TAB ONE (02:30)
[2017-04-24] MEDS ORDERED: Oxymetazoline HCl 0.05% ( 15 ML ) ONE (02:30)
[2017-04-24] MEDS ORDERED: Ciprofloxacin 500 MG TAB ONE (02:30)
[2017-04-24 02:33] LABS: Bacteria/HPF None Seen HPF (None Seen); Bilirubin Negative (Negative); Blood, Urine Negative (Negative); Clarity Clear (Clear); Glucose, Urine (Dipstick) 500 mg/dL (Negative); Leukocyte Negative (Negative); Nitrite Negative (Negative); Protein, Urine (Dipstick) Negative (Neg-Trace); RBC/HPF 0-3 HPF (0-3); Squamous Epithelial 0-3 HPF (0-3); Urobilinogen 0.2 mg/dL (0.2-1.0)
[2017-04-24 02:34] LABS: Yeast-All Forms 1+ HPF (None Seen)
[2017-04-24] MEDS ORDERED: Nitrofurantoin Monohyd/M-Cryst 100 MG CAP ONE (02:46)
[2017-04-24] MEDS ORDERED: Fluconazole 100 MG TAB ONE (02:48)
== END 2017-04-24 02:55 | disposition home or self-care (01) ==
LOC: MADERS 01:32
DX: J20.9 Acute bronchitis, unspecified (principal); N39.0 Urinary tract infection, site not specified; M79.1 Myalgia; E11.9 Type 2 diabetes mellitus without complications; I10 Essential (primary) hypertension; Z87.891 Personal history of nicotine dependence
CPT/HCPCS: 81001; 87086; 99283

== ENCOUNTER 2017-07-29 05:42 | Emergency (ER) | payer OTHER ==
[2017-07-29] MEDS ORDERED: Meclizine HCl 25 MG TAB ONE (06:43)
[2017-07-29] MEDS ORDERED: Ondansetron HCl/PF 4 MG/2 ML Vial ONE (06:43)
[2017-07-29 06:48] LABS: #Basophils 0.1 thou/uL (0.0-0.2); #Eosinphils 0.1 thou/uL (0.0-0.7); #Lymphocytes 3.2 thou/uL (1.20-3.40); #Monocytes 0.5 thou/uL (0.11-0.59); #Neutrophils 4.4 thou/uL (1.40-6.50); %Eosinophils 1.2 % (0.0-10.0); %Lymphocytes 38.9 % (21.0-51.0); %Neutrophils 52.8 % (42.0-75.0); Hemoglobin 14.5 g/dL (14.0-18.0); Mean Corpuscular HGB CONC 33.5 g/dL (32.0-36.0); Mean Corpuscular Hemoglobin 29.6 pg (27.0-31.0); Mean Corpuscular Volume 88.3 fl (80.0-94.0); Mean Platelet Volume 8.7 fL (7.4-10.4); Platelet Count 224 thou/uL (130-400); RBC Distribution Width 12.2 % (11.5-14.5); Red Blood Cell (RBC) Count 4.89 mill/uL (4.70-6.10); White Blood Cell (WBC) Count 8.3 thou/uL (4.8-10.8)
[2017-07-29 07:03] LABS: INR-International Normal Ratio 1.1; PTT 32.2 SEC (22.9-36.1); Prothrombin Time 14.3 SEC (12.0-14.7)
[2017-07-29 07:06] LABS: ALT (SGPT) 12 U/L (8-55); AST (SGOT) 7 U/L (5-34); Albumin 3.3 g/dL (3.5-5.0); Alkaline Phosphatase 117 U/L (40-150); Anion Gap 13 mmol/L (10-20); BUN (Urea Nitrogen) 10 mg/dL (8.9-20.6); Bilirubin, Total 0.3 mg/dL (0.2-1.2); Calc. Creatinine Clearance 0 mL/min (70-130); Calcium 8.7 mg/dL (7.8-10.44); Carbon Dioxide 23 mmol/L (22-29); Chloride 101 mmol/L (98-107); Estimated GFR-MDRD Greater than 90; Globulin 3.2 g/dL (2.4-3.5); Glucose 349 mg/dL (70-105); Potassium 4.1 mmol/L (3.5-5.1); Protein, Total 6.5 g/dL (6.0-8.3); Sodium 133 mmol/L (136-145)
[2017-07-29 07:23] LABS: Bilirubin Negative (Negative); Blood, Urine Small (Negative); Clarity Clear (Clear); Glucose, Urine (Dipstick) >=1000 mg/dL (Negative); Leukocyte Negative (Negative); Nitrite Negative (Negative); Protein, Urine (Dipstick) Negative (Neg-Trace); RBC/HPF 0-3 HPF (0-3); Specific Gravity, Urine 1.015 (1.005-1.030); Urobilinogen 0.2 mg/dL (0.2-1.0); pH, Urine 5.5 (5.0-9.0)
[2017-07-29 07:24] LABS: Bacteria/HPF Rare-Few HPF (None Seen); Squamous Epithelial 0-3 HPF (0-3); WBC/HPF 0-3 HPF (0-3)
[2017-07-29] MEDS ORDERED: Sodium Chloride 0.9% 1,000 ML BAG ONE (07:48)
--- NOTE | 2017-07-29 08:10 | RAD ---
PORTABLE UPRIGHT FRONTAL CHEST RADIOGRAPH: Date: 07-29-17 Comparison: 12-27-16 History: Dizziness. FINDINGS: Mild elevation of the right hemidiaphragm noted. Heart and mediastinal contours are stable. No focal consolidation or alveolar edema. IMPRESSION: No acute findings. POS: [facility]
== END 2017-07-29 09:05 | disposition home or self-care (01) ==
LOC: MADERS 05:42
DX: E11.65 Type 2 diabetes mellitus with hyperglycemia (principal); I10 Essential (primary) hypertension; F17.210 Nicotine dependence, cigarettes, uncomplicated
CPT/HCPCS: 36415; 36416; 71045; 80053; 81001; 83880; 85025; 85610; 85730; 87081; 87430; 96361; 96374; J2405; J7050

== ENCOUNTER 2017-08-11 04:50 | Emergency (ER) | payer OTHER ==
[2017-08-11 05:34] LABS: Bilirubin Negative (Negative); Blood, Urine Small (Negative); Clarity Clear (Clear); Glucose, Urine (Dipstick) 500 mg/dL (Negative); Leukocyte Negative (Negative); Nitrite Negative (Negative); Protein, Urine (Dipstick) Negative (Neg-Trace); Urobilinogen 0.2 mg/dL (0.2-1.0)
[2017-08-11] MEDS ORDERED: Insulin Regular 300 UNITS/3 ML VIAL ONE (05:35)
[2017-08-11] MEDS ORDERED: Meclizine HCl 25 MG TAB ONE (05:37)
[2017-08-11] MEDS ORDERED: Ondansetron ODT 4 MG TAB ONE (05:37)
[2017-08-11 05:44] LABS: Bacteria/HPF None Seen HPF (None Seen); Squamous Epithelial 0-3 HPF (0-3); WBC/HPF 0-3 HPF (0-3)
[2017-08-11 05:47] LABS: #Basophils 0.2 thou/uL (0.0-0.2); #Eosinphils 0.1 thou/uL (0.0-0.7); #Lymphocytes 3.8 thou/uL (1.20-3.40); #Monocytes 0.8 thou/uL (0.11-0.59); #Neutrophils 7.7 thou/uL (1.40-6.50); %Basophils 1.4 % (0.0-1.0); %Eosinophils 0.9 % (0.0-10.0); %Monocytes 6.3 % (0.0-10.0); %Neutrophils 61.5 % (42.0-75.0); Hemoglobin 14.7 g/dL (14.0-18.0); Mean Corpuscular HGB CONC 32.2 g/dL (32.0-36.0); Mean Corpuscular Hemoglobin 28.7 pg (27.0-31.0); Mean Corpuscular Volume 89.3 fl (80.0-94.0); Mean Platelet Volume 9.3 fL (7.4-10.4); Platelet Count 279 thou/uL (130-400); RBC Distribution Width 12.3 % (11.5-14.5); Red Blood Cell (RBC) Count 5.12 mill/uL (4.70-6.10); White Blood Cell (WBC) Count 12.6 thou/uL (4.8-10.8)
[2017-08-11 06:01] LABS: ALT (SGPT) 12 U/L (8-55); AST (SGOT) 7 U/L (5-34); Albumin 3.4 g/dL (3.5-5.0); Alkaline Phosphatase 136 U/L (40-150); Anion Gap 14 mmol/L (10-20); BUN (Urea Nitrogen) 12 mg/dL (8.9-20.6); Bilirubin, Total 0.3 mg/dL (0.2-1.2); Calc. Creatinine Clearance 0 mL/min (70-130); Calcium 8.8 mg/dL (7.8-10.44); Carbon Dioxide 22 mmol/L (22-29); Chloride 98 mmol/L (98-107); Estimated GFR-MDRD Greater than 90; Globulin 3.5 g/dL (2.4-3.5); Glucose 394 mg/dL (70-105); Potassium 4.1 mmol/L (3.5-5.1); Protein, Total 6.9 g/dL (6.0-8.3); Sodium 130 mmol/L (136-145)
[2017-08-11] MEDS ORDERED: Sodium Chloride 0.9% 1,000 ML BAG ONE (13:17)
== END 2017-08-11 07:04 | disposition home or self-care (01) ==
LOC: MADERS 04:50
DX: E11.65 Type 2 diabetes mellitus with hyperglycemia (principal); H81.13 Benign paroxysmal vertigo, bilateral; H61.22 Impacted cerumen, left ear; E86.9 Volume depletion, unspecified; F17.210 Nicotine dependence, cigarettes, uncomplicated; Z79.84 Long term (current) use of oral hypoglycemic drugs
CPT/HCPCS: 36416; 80053; 81003; 81015; 85025; 96372; J1815; J7050; Q0162

== ENCOUNTER 2017-11-09 06:04 | Emergency (ER) | payer OTHER ==
[2017-11-09] MEDS ORDERED: methylPREDNISolone Sod Succ/PF 125 MG/2 ML VIAL ONE (06:22)
[2017-11-09] MEDS ORDERED: Morphine 10 MG/ML VIAL ONE (06:22)
[2017-11-09] MEDS ORDERED: Ondansetron HCl/PF 4 MG/2 ML Vial ONE (06:22)
[2017-11-09 06:36] LABS: #Basophils 0.1 thou/uL (0.0-0.2); #Eosinphils 0.1 thou/uL (0.0-0.7); #Lymphocytes 3.1 thou/uL (1.20-3.40); #Monocytes 0.5 thou/uL (0.11-0.59); #Neutrophils 3.6 thou/uL (1.40-6.50); %Basophils 1.5 % (0.0-1.0); %Eosinophils 1.7 % (0.0-10.0); %Lymphocytes 42.2 % (21.0-51.0); %Monocytes 6.2 % (0.0-10.0); %Neutrophils 48.4 % (42.0-75.0); Hemoglobin 16.3 g/dL (14.0-18.0); Mean Corpuscular HGB CONC 34.9 g/dL (32.0-36.0); Mean Corpuscular Hemoglobin 30.6 pg (27.0-31.0); Mean Corpuscular Volume 87.7 fl (80.0-94.0); Mean Platelet Volume 8.8 fL (7.4-10.4); Platelet Count 243 thou/uL (130-400); RBC Distribution Width 12.9 % (11.5-14.5); Red Blood Cell (RBC) Count 5.31 mill/uL (4.70-6.10); White Blood Cell (WBC) Count 7.3 thou/uL (4.8-10.8)
[2017-11-09] MEDS ORDERED: cefTRIAXone\\ROCEPHIN 1 GM VIAL ONE (06:47)
[2017-11-09 06:57] LABS: Anion Gap 14 mmol/L (10-20); BUN (Urea Nitrogen) 12 mg/dL (8.9-20.6); Calc. Creatinine Clearance 0 mL/min (70-130); Calcium 9.5 mg/dL (7.8-10.44); Carbon Dioxide 21 mmol/L (22-29); Chloride 101 mmol/L (98-107); Estimated GFR-MDRD Greater than 90; Glucose 427 mg/dL (70-105); Potassium 4.1 mmol/L (3.5-5.1); Sodium 132 mmol/L (136-145)
[2017-11-09 07:10] LABS: CKMB 0.8 ng/mL (0-6.6); Troponin I Less than 0.010 ng/mL (< 0.028)
[2017-11-09] MEDS ORDERED: Sodium Chloride 0.9% 100 ML BAG ONE (07:18)
--- NOTE | 2017-11-09 07:37 | RAD ---
PORTABLE SEMIUPRIGHT FRONTAL CHEST RADIOGRAPH: Date: 11/09/17 COMPARISON: 07/29/17. HISTORY: Dyspnea. FINDINGS: There is mild elevation of the right hemidiaphragm. Heart and mediastinal contours are stable. Lungs appear clear. IMPRESSION: No acute findings. POS: [facility]
[2017-11-09] MEDS ORDERED: Insulin Regular 300 UNITS/3 ML VIAL ONE (07:43)
== END 2017-11-09 09:05 | disposition home or self-care (01) ==
LOC: MADERS 06:04
DX: E11.65 Type 2 diabetes mellitus with hyperglycemia (principal); I10 Essential (primary) hypertension; F17.210 Nicotine dependence, cigarettes, uncomplicated; Z79.84 Long term (current) use of oral hypoglycemic drugs
CPT/HCPCS: 36415; 36416; 71045; 80048; 82553; 83880; 84484; 85025; 93005; 94760; 96374; 96375; J0696; J1815; J2270; J2405; J2930; J7050; J7620

== ENCOUNTER 2018-01-14 02:21 | Emergency (ER) | payer OTHER ==
[2018-01-14] MEDS ORDERED: Morphine 4 MG/ML VIAL ONE (04:24)
[2018-01-14] MEDS ORDERED: Ondansetron ODT 4 MG TAB ONE (04:25)
[2018-01-14] MEDS ORDERED: Ketorolac Tromethamine 30 MG/ML VIAL ONE (04:25)
[2018-01-14 04:26] LABS: #Basophils 0.2 thou/uL (0.0-0.2); #Eosinphils 0.1 thou/uL (0.0-0.7); #Lymphocytes 3.3 thou/uL (1.20-3.40); #Monocytes 0.5 thou/uL (0.11-0.59); #Neutrophils 4.8 thou/uL (1.40-6.50); %Basophils 1.9 % (0.0-1.0); %Eosinophils 1.4 % (0.0-10.0); %Monocytes 5.8 % (0.0-10.0); Hemoglobin 15.5 g/dL (14.0-18.0); Mean Corpuscular Hemoglobin 28.5 pg (27.0-31.0); Mean Corpuscular Volume 86.3 fL (78.0-98.0); Mean Platelet Volume 8.4 fL (7.4-10.4); Platelet Count 230 thou/uL (130-400); RBC Distribution Width 11.7 % (11.5-14.5); Red Blood Cell (RBC) Count 5.42 mill/uL (4.70-6.10); White Blood Cell (WBC) Count 8.9 thou/uL (4.8-10.8)
[2018-01-14 04:34] LABS: Bilirubin Negative (Negative); Blood, Urine Small (Negative); Clarity Clear (Clear); Glucose, Urine (Dipstick) 500 mg/dL (Negative); Leukocyte Negative (Negative); Nitrite Negative (Negative); Protein, Urine (Dipstick) Negative (Neg-Trace); Urobilinogen 0.2 mg/dL (0.2-1.0); pH, Urine 5.5 (5.0-9.0)
[2018-01-14 04:38] LABS: Bacteria/HPF None Seen HPF (None Seen); Squamous Epithelial 0-3 HPF (0-3); Yeast-All Forms 1+ HPF (None Seen)
[2018-01-14 04:46] LABS: ALT (SGPT) 15 U/L (8-55); AST (SGOT) 11 U/L (5-34); Albumin 3.6 g/dL (3.5-5.0); Alkaline Phosphatase 109 U/L (40-150); Anion Gap 14 mmol/L (10-20); BUN (Urea Nitrogen) 12 mg/dL (8.9-20.6); Bilirubin, Total 0.4 mg/dL (0.2-1.2); CK (CPK) 39 U/L (30-200); Calc. Creatinine Clearance 0 mL/min (70-130); Carbon Dioxide 22 mmol/L (22-29); Chloride 99 mmol/L (98-107); Estimated GFR-MDRD Greater than 90; Globulin 3.5 g/dL (2.4-3.5); Glucose 354 mg/dL (70-105); Lipase 20 U/L (8-78); Potassium 4.2 mmol/L (3.5-5.1); Protein, Total 7.1 g/dL (6.0-8.3); Sodium 131 mmol/L (136-145)
[2018-01-14] MEDS ORDERED: Insulin Regular 300 UNITS/3 ML VIAL ONE (05:05)
[2018-01-14] MEDS ORDERED: Sodium Chloride 0.9% 1,000 ML BAG ONE (07:20)
[2018-01-14] MEDS ORDERED: Sulfameth/Trimethoprim DS 800-160mg TAB ONE (07:31)
[2018-01-14] MEDS ORDERED: HYDROcodone/Acetaminophen 10/325 mg Tablet ONE (07:31)
--- NOTE | 2018-01-14 09:08 | RAD ---
SINGLE VIEW OF THE CHEST: Comparison: 11-09-17 History: Abdominal pain. FINDINGS: Single view of the chest shows a normal sized cardiomediastinal silhouette. There is no evidence of c onsolidation, mass, or pleural effusion. The bones are unremarkable. IMPRESSION: No evidence of acute cardiopulmonary disease. POS: [facility]
--- NOTE | 2018-01-14 10:50 | CT ---
PRELIMINARY REPORT/[facility]/EMERGENTY AFTER-HOURS PROCEDURE CT Abdomen and Pelvis With Intravenous Contrast CLINICAL HISTORY: 47 years old, male; Pain; Abdominal pain; Generalized; Patient HX: Bilateral abdominal pain x couple of weeks; Worse tonight TECHNIQUE: Axial computed tomography images of the abdomen and pelvis with intravenous contrast. All CT scans at this facility use at least one of these dose optimization techniques: automated exposure control; mA and/or kV adjustment per patient size (includes targeted exams where dose is matched to clinical ind ication); or iterative reconstruction. Coronal reformatted images were created and reviewed. CONTRAST: 100 ml of ISOVUE 370 administered intravenously. COMPARISON: No relevant prior studies available. FINDINGS: Lower thorax: A nodule measuring 4 mm is seen in the right lung base. A subpleural nodule measuring 4 mm is seen in the right lung base. Mild atelectasis is seen in the right lung base. Several nodules are noted in the left lung base the largest measuring 4 mm. Coronary artery calcifications are noted. ABDOMEN: Liver: Normal. No mass. Gallbladder and bile ducts: Normal. No calcified stones. No ductal dilation. Pancreas: Mild fatty replacement of the pancreas is seen. Spleen: Normal. No splenomegaly. Adrenals: Normal. No mass. Kidneys and ureters: Normal. No hydronephrosis. Stomach and bowel: Moderate amount of stool is noted in the colon. Appendix: Normal. No findings to suggest acute appendicitis. PELVIS: Bladder: The urinary bladder is underdistended. Reproductive: Unremarkable as visualized. ABDOMEN and PELVIS: Intraperitoneal space: No evidence of free air in the abdomen. Bones/joints: There are mild degenerative changes present in the spine. Soft tissues: Unremarkable. Vasculature: Mild atherosclerotic calcifications affect the aorta and its branches. Lymph nodes: Normal. No enlarged lymph nodes. IMPRESSION: 1. No acute findings. 2. Several nodules in both lung bases the largest measuring 4 mm. No followup is required if the lizzie ent is at low risk. An optional chest CT can be obtained in 12 months if patient is at high risk. Thank you for allowing us to participate in the care of your patient. Dictated and Authenticated by: Lyric Quintero MD 01/14/2018 6:59 AM Central Time (US & Sun) FINAL REPORT ABDOMEN CT WITH CONTRAST PELVIC CT WITH CONTRAST: Date: 01/14/18 HISTORY: Severe abdominal pain. Severe bilateral low back pain. COMPARISON: None. TECHNIQUE: Abdomen and pelvic CT performed with IV and oral contrast. Coronal reformatted images are submitted f or interpretation. FINDINGS: This report is in agreement with the preliminary report by [facility]. No acute abnormality in the abdomen or pelvis. Lung parenchymal nodules as described in the preliminary report by [facility], along with recomm endations as described in the preliminary report by [facility]. POS: [facility]
[2018-01-14] MEDS ORDERED: Iopamidol 370 76% 100 ML VIAL ONE (11:25)
== END 2018-01-14 08:00 | disposition home or self-care (01) ==
LOC: MADERS 02:21
DX: N39.0 Urinary tract infection, site not specified (principal); E11.65 Type 2 diabetes mellitus with hyperglycemia; I10 Essential (primary) hypertension; F17.210 Nicotine dependence, cigarettes, uncomplicated; Z79.84 Long term (current) use of oral hypoglycemic drugs
CPT/HCPCS: 36416; 71045; 74177; 80053; 81001; 82150; 82550; 83605; 83690; 85025; 87086; 96361; 96374; 96375; J1815; J1885; J2270; J7050; Q0162

== ENCOUNTER 2018-04-09 05:39 | Emergency (ER) | payer OTHER ==
[2018-04-09] MEDS ORDERED: Sodium Chloride Irrig Solution 250 ML BOT ONE (13:12)
== END 2018-04-09 06:35 | disposition home or self-care (01) ==
LOC: MADERS 05:39
DX: H61.22 Impacted cerumen, left ear (principal); E11.9 Type 2 diabetes mellitus without complications; I10 Essential (primary) hypertension; F17.210 Nicotine dependence, cigarettes, uncomplicated; Z79.84 Long term (current) use of oral hypoglycemic drugs
CPT/HCPCS: 69209

== ENCOUNTER 2018-04-16 12:55 | Emergency (ER) | payer OTHER ==
[~2018-04-16 12:55] MED LIST changes: +Sodium Chloride 0.9% 1,000 ML BAG ONE; -Sodium Chloride 0.9% 100 ML BAG ONE; -Sodium Chloride 0.9% 500 ML BAG ONE
[2018-04-16 13:29] LABS: Bilirubin Negative (Negative); Blood, Urine Moderate (Negative); Clarity Clear (Clear); Glucose, Urine (Dipstick) >=1000 mg/dL (Negative); Leukocyte Negative (Negative); Nitrite Negative (Negative); Protein, Urine (Dipstick) Trace mg/dL (Neg-Trace); Urobilinogen 0.2 mg/dL (0.2-1.0); pH, Urine 5.5 (5.0-9.0)
[2018-04-16 13:36] LABS: Specific Gravity, Urine 1.032 (1.002-1.036)
[2018-04-16 13:40] LABS: Squamous Epithelial 0-3 HPF (0-3); WBC/HPF 0-3 HPF (0-3)
[2018-04-16 13:41] LABS: Bacteria/HPF Rare-Few HPF (None Seen)
[2018-04-16 13:49] LABS: #Basophils 0.1 thou/uL (0.0-0.2); #Eosinphils 0.1 thou/uL (0.0-0.7); #Lymphocytes 3.4 thou/uL (1.20-3.40); #Monocytes 0.6 thou/uL (0.11-0.59); #Neutrophils 3.5 thou/uL (1.40-6.50); %Basophils 1.8 % (0.0-1.0); %Eosinophils 1.2 % (0.0-10.0); %Lymphocytes 44.2 % (21.0-51.0); %Monocytes 7.3 % (0.0-10.0); %Neutrophils 45.5 % (42.0-75.0); Hemoglobin 15.6 g/dL (14.0-18.0); Mean Corpuscular HGB CONC 34.3 g/dL (32.0-36.0); Mean Corpuscular Hemoglobin 30.2 pg (27.0-31.0); Mean Platelet Volume 9.7 fL (7.4-10.4); Platelet Count 247 thou/uL (130-400); RBC Distribution Width 11.8 % (11.5-14.5); Red Blood Cell (RBC) Count 5.19 mill/uL (4.70-6.10); White Blood Cell (WBC) Count 7.8 thou/uL (4.8-10.8)
[2018-04-16 13:59] LABS: ALT (SGPT) 16 U/L (8-55); AST (SGOT) 9 U/L (5-34); Albumin 3.5 g/dL (3.5-5.0); Alkaline Phosphatase 151 U/L (40-150); Anion Gap 15 mmol/L (10-20); BUN (Urea Nitrogen) 11 mg/dL (8.9-20.6); Bilirubin, Total 0.2 mg/dL (0.2-1.2); Calc. Creatinine Clearance 0 mL/min (70-130); Calcium 9.3 mg/dL (7.8-10.44); Carbon Dioxide 23 mmol/L (22-29); Chloride 96 mmol/L (98-107); Estimated GFR-MDRD 81; Globulin 3.5 g/dL (2.4-3.5); Glucose 469 mg/dL (70-105); Potassium 3.7 mmol/L (3.5-5.1); Sodium 130 mmol/L (136-145)
--- NOTE | 2018-04-16 14:05 | RAD ---
2 VIEWS CHEST: Date: 04/16/18 COMPARISON: 01/14/18. HISTORY: Cough. FINDINGS: Two views of the chest show normal sized cardiomediastinal silhouette. There is no evidence of consol idation, mass, or pleural effusion. The bones are unremarkable. IMPRESSION: No evidence of acute cardiopulmonary disease. POS: [facility]
== END 2018-04-16 15:26 | disposition home or self-care (01) ==
LOC: MADERS 12:55
DX: J11.1 Influenza due to unidentified influenza virus with other respiratory manifestations (principal); H10.9 Unspecified conjunctivitis; E11.9 Type 2 diabetes mellitus without complications; I10 Essential (primary) hypertension; F17.210 Nicotine dependence, cigarettes, uncomplicated; Z79.84 Long term (current) use of oral hypoglycemic drugs
CPT/HCPCS: 36416; 71046; 80053; 81003; 81015; 83605; 85025; 87040; 87086; 87804; 96360; 96361; J7050

== ENCOUNTER 2018-07-22 10:20 | Emergency (ER) | payer SELFPAY ==
[2018-07-22] MEDS ORDERED: Lidocaine 1% 20 ML MDV ONE (10:49)
[2018-07-22 10:59] LABS: #Basophils 0.2 thou/uL (0.0-0.2); #Eosinphils 0.1 thou/uL (0.0-0.7); #Lymphocytes 3.2 thou/uL (1.20-3.40); #Monocytes 0.7 thou/uL (0.11-0.59); #Neutrophils 4.7 thou/uL (1.40-6.50); %Basophils 1.7 % (0.0-1.0); %Eosinophils 1.4 % (0.0-10.0); %Lymphocytes 36.1 % (21.0-51.0); %Monocytes 8.3 % (0.0-10.0); %Neutrophils 52.5 % (42.0-75.0); Hemoglobin 15.7 g/dL (14.0-18.0); Mean Corpuscular HGB CONC 33.1 g/dL (32.0-36.0); Mean Corpuscular Hemoglobin 29.7 pg (27.0-31.0); Mean Corpuscular Volume 89.7 fL (78.0-98.0); Mean Platelet Volume 7.9 fL (7.4-10.4); Platelet Count 314 thou/uL (130-400); RBC Distribution Width 12.6 % (11.5-14.5); Red Blood Cell (RBC) Count 5.31 mill/uL (4.70-6.10); White Blood Cell (WBC) Count 8.9 thou/uL (4.8-10.8)
--- NOTE | 2018-07-22 11:06 | RAD ---
RIGHT BIG TOE 3 VIEWS: HISTORY: Toe infection. FINDINGS: Extensive soft tissue swelling. Some gas evident. Ill-defined osteolysis of the distal tuft with er osions along the lateral margin. No evidence of intraarticular extension. Prominent arterial calcif ications. IMPRESSION: 1. Erosive changes of the distal tuft of the right big toe are consistent with, although not specifi c for, osteomyelitis. 2. Atherosclerosis. POS: [facility]
[2018-07-22] MEDS ORDERED: cefTRIAXone\\ROCEPHIN 2 GM VIAL ONE (11:20)
[2018-07-22] MEDS ORDERED: Sodium Chloride 0.9% 250 ML 250 ML ONE ×2 (11:21)
[2018-07-22 11:23] LABS: ALT (SGPT) 15 U/L (8-55); AST (SGOT) 11 U/L (5-34); Albumin 3.6 g/dL (3.5-5.0); Alkaline Phosphatase 116 U/L (40-150); Anion Gap 14 mmol/L (10-20); BUN (Urea Nitrogen) 12 mg/dL (8.9-20.6); Bilirubin, Total 0.3 mg/dL (0.2-1.2); Calc. Creatinine Clearance 0 mL/min (70-130); Calcium 9.5 mg/dL (7.8-10.44); Carbon Dioxide 22 mmol/L (22-29); Chloride 99 mmol/L (98-107); Estimated GFR-MDRD Greater than 90; Glucose 342 mg/dL (70-105); Potassium 3.9 mmol/L (3.5-5.1); Protein, Total 7.6 g/dL (6.0-8.3); Sodium 131 mmol/L (136-145)
[2018-07-22] MEDS ORDERED: Sodium Chloride 0.9% 100 ML ONE (11:24)
[2018-07-22] MEDS ORDERED: Insulin Regular 300 UNITS/3 ML VIAL ONE (11:37)
== END 2018-07-22 12:17 | disposition short-term general hospital (02) ==
LOC: MADERS 10:20
DX: M86.9 Osteomyelitis, unspecified (principal); E11.65 Type 2 diabetes mellitus with hyperglycemia; Z71.6 Tobacco abuse counseling; E11.9 Type 2 diabetes mellitus without complications; I10 Essential (primary) hypertension; F17.210 Nicotine dependence, cigarettes, uncomplicated
CPT/HCPCS: 11765; 36415; 36416; 80053; 83605; 85025; 87040; 96365; 96368; 96375; 99406; J0696; J1815; J2001; J3370; J7050

== ENCOUNTER 2018-07-31 15:59 | Inpatient (IN) | payer OTHER ==
[2018-07-31 16:16] VITALS: BMI 35.2
[2018-07-31] MEDS ORDERED: Senokot S 8.6-50 MG TAB PO PRN (17:59)
[2018-07-31] MEDS ORDERED: Ondansetron ODT 4 MG TAB PO PRN (17:59)
[2018-07-31] MEDS ORDERED: Bisacodyl 5 MG TAB PO PRN (17:59)
[2018-07-31] MEDS ORDERED: Nicotine 7 MG PATCH TD SCH (18:00)
[2018-07-31] MEDS: traMADol HCl 50 MG TAB PO PRN (18:26)
[2018-07-31] MEDS: Lisinopril 10 MG TAB PO SCH (20:07)
[2018-07-31] MEDS: Amoxicillin/Potassium Clav 875 MG TAB PO SCH (20:08)
[2018-07-31] MEDS: Famotidine 20 MG TAB PO SCH (20:09)
[2018-07-31] MEDS: Ciprofloxacin 500 MG TAB PO SCH (20:09)
[2018-07-31] MEDS: Nicotine 7 MG PATCH TD SCH (20:11)
[2018-07-31] MEDS ORDERED: traMADol HCl 50 MG TAB PO SCH (20:15)
[2018-08-01] MEDS: Acetaminophen 325 MG TAB PO PRN ×2 (00:21→18:55)
--- NOTE | 2018-08-01 02:12 | HP ---
ADMITTING PHYSICIAN: Vivien Tijerina MD PRIMARY CARE PHYSICIAN: No PCP. REASON FOR ADMISSION: For skilled rehabilitation and wound care status post right great toe amputation due to diabetic toe infection and osteomyelitis. HISTORY OF PRESENT ILLNESS: Mr. Malhotra is a 48-year-old male with a past medical history of diabetes type 2, hypertension, vertigo, who is noncompliant with his care. The patient presented to [facility] on July 22 due to a 5 -day history of stubbing his toe to a wall,and he states that since then he has an open wound to the right great toe. The patient was seen in [facility] ER and had a toenail removal and subsequently transferred for surgical evaluation and higher level of care in [facility]. Upon admission in [facility], he was seen by ID specialist, Dr. Mcdaniels, and the patient was started on IV antibiotic. He was seen by the surgeon, Dr. Luna, who debrided his toe as the patient was scared of amputation. 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 Upon further evaluation, it was noted that vascular supply to his great toe was very questionable and this may affect the wound healing. The patient was very scared of amputation and he was convinced to have partial amputation involving the toe, this was done on July 30, 2018. The patient tolerated the procedure well and due to the amputation, his IV antibiotic was changed to p.o. antibiotic and the patient was subsequently transferred for skilled rehabilitation for wound care, PT, OT. During this hospitalization, he was started on metformin for his diabetes and alogliptin. Upon evaluation of the patient today, he was excited to start physical therapy. He complains of pain to the toe. He complains that he is scared and he does not want the toe to get further infected. He states he really understands, he needs to do better managing his diabetes and he understands he has to have wound care management and physical therapy while he is in the extended care swing bed. PAST MEDICAL HISTORY: Hypertension, diabetes type 2, and vertigo. PAST SURGICAL HISTORY: Tonsillectomy, bilateral knee surgeries, mostly arthroscopies. SOCIAL HISTORY: He works at a [employer] in [place]. He smokes tobacco daily. ALLERGIES: NONE. CURRENT MEDICATIONS: 1. Aspirin 81 mg daily. 2. Cipro 500 mg p.o. b.i.d. 3. Lisinopril 10 b.i.d. 4. Metformin 1000 b.i.d. 5. Augmentin 1 tablet p.o. b.i.d. 6. Amlodipine 5 mg daily. 7. Alogliptin 6.25 daily. 8. Tylenol No.3, 650 q.4 p.r.n. pain. FAMILY HISTORY: Noncontributory. REVIEW OF SYSTEMS: CONSTITUTIONAL: Denies weight loss or weight gain. I believe he could conduct his activities, denies any fever. EYES: Denies double vision or pain. HEENT: Denies nose bleeding or mouth sores. NECK: Denies neck stiffness or tenderness. CARDIOVASCULAR: Denies chest pain or shortness of breath. RESPIRATORY: Denies fever, cough, night sweats, or wheezing. GASTROINTESTINAL: Denies nausea, vomiting, or abdominal pain. GENITOURINARY: Denies urinary frequency, urgency, or dysuria. MUSCULOSKELETAL: Complains of pain to the toe and swelling. NEUROLOGIC: Denies depression or anxiety. ALLERGIES: Denies skin rash. PHYSICAL EXAMINATION: VITAL SIGNS: Temperature 98.0, pulse 96, respirations 19, O2 saturation 96% on room air, and blood pressure 157/86. GENERAL: Mr. Malhotra is a pleasant but very anxious male, alert, awake, oriented x3, in no apparent distress. He is overweight. HEENT: Head, atraumatic and normocephalic. Eyes; pupils are equal, reactive to light, and accommodation. Extraocular muscle movements intact. ENT, normal. NECK: Supple, nontender, no JVD. RESPIRATORY: Clear to auscultation bilaterally. No wheezing. CARDIOVASCULAR: S1 and S2 normal. ABDOMEN: Positive bowel sounds. Soft and nontender. Obese. EXTREMITIES: Right greater toe with dressing, top of foot with dressing also. Mild swelling to the foot noted. NEUROLOGIC: Alert, awake, and oriented x3. Cranial nerves 2 through 12 intact. SKIN: No rashes. ASSESSMENT: 1. Osteomyelitis. 2. Diabetic foot infection, status post amputation of the right great toe. 3. Diabetes, type 2, uncontrolled. 4. Hypertension. 5. Vertigo. 6. Tobacco abuse. PLAN: The patient will be admitted to [facility] for physical therapy, occupational therapy, and wound care. We will consult Wound Care for dressing changes. We will keep the dressing intact and change dressing for first time 48 hours after surgery, which should be tomorrow morning. We will treat the patient's pain with tramadol as needed. We will consult PT for strengthening, balance and gait training. For his diabetes, we will put the patient on strict ADA diet and aggressive sliding scale. We will continue Accu-Chek before meals and at bedtime. We will continue his blood pressure medications. We will check an A1c. We will monitor the patient closely. We will place the patient on a nicotine patch. ANTICIPATED LENGTH OF STAY: One to Two weeks. DISPOSITION: Home. CODE STATUS: The patient is a full code. Job ID: [id number] MTDD
[2018-08-01 05:11] LABS: #Basophils 0.1 thou/uL (0.0-0.2); #Eosinphils 0.2 thou/uL (0.0-0.7); #Lymphocytes 3.9 thou/uL (1.20-3.40); #Neutrophils 4.3 thou/uL (1.40-6.50); %Basophils 1.2 % (0.0-1.0); %Eosinophils 2.2 % (0.0-10.0); %Lymphocytes 41.1 % (21.0-51.0); %Monocytes 10.4 % (0.0-10.0); %Neutrophils 45.1 % (42.0-75.0); Hemoglobin 12.8 g/dL (14.0-18.0); Mean Corpuscular HGB CONC 33.2 g/dL (32.0-36.0); Mean Corpuscular Hemoglobin 29.6 pg (27.0-31.0); Mean Corpuscular Volume 89.3 fL (78.0-98.0); Mean Platelet Volume 7.6 fL (7.4-10.4); Platelet Count 268 thou/uL (130-400); RBC Distribution Width 12.4 % (11.5-14.5); Red Blood Cell (RBC) Count 4.31 mill/uL (4.70-6.10); White Blood Cell (WBC) Count 9.5 thou/uL (4.8-10.8)
[2018-08-01 05:32] LABS: ALT (SGPT) 68 U/L (8-55); AST (SGOT) 40 U/L (5-34); Albumin 3.4 g/dL (3.5-5.0); Alkaline Phosphatase 73 U/L (40-150); Anion Gap 17 mmol/L (10-20); BUN (Urea Nitrogen) 9 mg/dL (8.9-20.6); Bilirubin, Total 0.3 mg/dL (0.2-1.2); Calc. Creatinine Clearance 130 mL/min (70-130); Calcium 10.2 mg/dL (7.8-10.44); Carbon Dioxide 25 mmol/L (22-29); Chloride 106 mmol/L (98-107); Estimated GFR-MDRD 83; Globulin 3.4 g/dL (2.4-3.5); Glucose 179 mg/dL (70-105); Potassium 4.4 mmol/L (3.5-5.1); Protein, Total 6.8 g/dL (6.0-8.3); Sodium 144 mmol/L (136-145)
[2018-08-01] MEDS: Amoxicillin/Potassium Clav 875 MG TAB PO SCH ×2 (08:20→20:20)
[2018-08-01] MEDS: Amlodipine 5 MG TAB PO SCH (08:20)
[2018-08-01] MEDS: metFORMIN 500 MG TAB PO SCH ×2 (08:20→17:05)
[2018-08-01] MEDS: Ciprofloxacin 500 MG TAB PO SCH ×2 (08:20→20:23)
[2018-08-01] MEDS: Alogliptin 6.25 MG TAB PO SCH (08:20)
[2018-08-01] MEDS: Lisinopril 10 MG TAB PO SCH ×2 (08:21→20:21)
[2018-08-01] MEDS: Famotidine 20 MG TAB PO SCH ×2 (08:21→20:20)
[2018-08-01] MEDS: Enoxaparin Sodium 30 MG/0.3 ML SYRINGE SC SCH (08:23)
[2018-08-01 11:59] LABS: Hemoglobin A1c 11.2 % (4.0-6.0)
[2018-08-01] MEDS: traMADol HCl 50 MG TAB PO PRN (14:22)
[2018-08-01] MEDS: Nicotine 7 MG PATCH TD SCH (20:22)
[2018-08-02] MEDS: traMADol HCl 50 MG TAB PO PRN ×3 (05:12→21:25)
[2018-08-02] MEDS: Enoxaparin Sodium 30 MG/0.3 ML SYRINGE SC SCH (08:25)
[2018-08-02] MEDS: Amlodipine 5 MG TAB PO SCH (08:25)
[2018-08-02] MEDS: Alogliptin 6.25 MG TAB PO SCH (08:25)
[2018-08-02] MEDS: Ciprofloxacin 500 MG TAB PO SCH ×2 (08:25→21:24)
[2018-08-02] MEDS: Amoxicillin/Potassium Clav 875 MG TAB PO SCH ×2 (08:25→21:23)
[2018-08-02] MEDS: metFORMIN 500 MG TAB PO SCH ×2 (08:25→17:34)
[2018-08-02] MEDS: Lisinopril 10 MG TAB PO SCH ×2 (08:26→21:24)
[2018-08-02] MEDS: Famotidine 20 MG TAB PO SCH ×2 (08:26→21:24)
[2018-08-02] MEDS: Nicotine 7 MG PATCH TD SCH (21:23)
[2018-08-02] MEDS: Acetaminophen 325 MG TAB PO PRN (23:41)
[2018-08-03] MEDS ORDERED: traMADol HCl 50 MG TAB PO SCH (01:30)
[2018-08-03] MEDS: metFORMIN 500 MG TAB PO SCH ×2 (08:03→17:24)
[2018-08-03] MEDS: Alogliptin 6.25 MG TAB PO SCH (08:04)
[2018-08-03] MEDS: Amlodipine 5 MG TAB PO SCH (08:04)
[2018-08-03] MEDS: Ciprofloxacin 500 MG TAB PO SCH ×2 (08:06→20:26)
[2018-08-03] MEDS: Enoxaparin Sodium 30 MG/0.3 ML SYRINGE SC SCH (08:06)
[2018-08-03] MEDS: Amoxicillin/Potassium Clav 875 MG TAB PO SCH ×2 (08:06→20:26)
[2018-08-03] MEDS: Famotidine 20 MG TAB PO SCH ×2 (08:06→20:26)
[2018-08-03] MEDS: Lisinopril 10 MG TAB PO SCH ×2 (08:06→20:26)
[2018-08-03] MEDS: Nicotine 7 MG PATCH TD SCH (20:27)
[2018-08-03] MEDS: traMADol HCl 50 MG TAB PO PRN (20:27)
[2018-08-04] MEDS: Enoxaparin Sodium 30 MG/0.3 ML SYRINGE SC SCH (08:50)
[2018-08-04] MEDS: Lisinopril 10 MG TAB PO SCH ×2 (08:50→20:06)
[2018-08-04] MEDS: Amoxicillin/Potassium Clav 875 MG TAB PO SCH ×2 (08:50→20:05)
[2018-08-04] MEDS: Ciprofloxacin 500 MG TAB PO SCH ×2 (08:50→20:05)
[2018-08-04] MEDS: Alogliptin 6.25 MG TAB PO SCH (08:50)
[2018-08-04] MEDS: metFORMIN 500 MG TAB PO SCH ×2 (08:51→16:55)
[2018-08-04] MEDS: Famotidine 20 MG TAB PO SCH ×2 (08:51→20:05)
[2018-08-04] MEDS: Amlodipine 5 MG TAB PO SCH (08:51)
[2018-08-04] MEDS: traMADol HCl 50 MG TAB PO PRN (19:18)
[2018-08-04] MEDS: Nicotine 7 MG PATCH TD SCH (20:13)
[2018-08-05] MEDS: Alogliptin 6.25 MG TAB PO SCH (08:12)
[2018-08-05] MEDS: Amoxicillin/Potassium Clav 875 MG TAB PO SCH ×2 (08:12→20:34)
[2018-08-05] MEDS: Enoxaparin Sodium 30 MG/0.3 ML SYRINGE SC SCH (08:12)
[2018-08-05] MEDS: metFORMIN 500 MG TAB PO SCH ×2 (08:12→17:18)
[2018-08-05] MEDS: Lisinopril 10 MG TAB PO SCH ×2 (08:12→20:34)
[2018-08-05] MEDS: Amlodipine 5 MG TAB PO SCH (08:13)
[2018-08-05] MEDS: Famotidine 20 MG TAB PO SCH ×2 (08:13→20:34)
[2018-08-05] MEDS: Ciprofloxacin 500 MG TAB PO SCH ×2 (08:14→20:33)
[2018-08-05] MEDS: traMADol HCl 50 MG TAB PO PRN (19:32)
[2018-08-05] MEDS: Nicotine 7 MG PATCH TD SCH (20:35)
[2018-08-05] MEDS: Acetaminophen 325 MG TAB PO PRN (20:39)
[2018-08-06] MEDS: traMADol HCl 50 MG TAB PO PRN ×2 (02:13→19:35)
[2018-08-06] MEDS: Amoxicillin/Potassium Clav 875 MG TAB PO SCH ×2 (08:17→20:55)
[2018-08-06] MEDS: Alogliptin 6.25 MG TAB PO SCH (08:17)
[2018-08-06] MEDS: Amlodipine 5 MG TAB PO SCH (08:18)
[2018-08-06] MEDS: Ciprofloxacin 500 MG TAB PO SCH ×2 (08:18→20:56)
[2018-08-06] MEDS: Famotidine 20 MG TAB PO SCH ×2 (08:18→20:55)
[2018-08-06] MEDS: Lisinopril 10 MG TAB PO SCH ×2 (08:18→20:55)
[2018-08-06] MEDS: metFORMIN 500 MG TAB PO SCH ×2 (08:18→16:48)
[2018-08-06] MEDS: Enoxaparin Sodium 30 MG/0.3 ML SYRINGE SC SCH (08:19)
[2018-08-06] MEDS: Acetaminophen 325 MG TAB PO PRN ×2 (13:22→23:00)
[2018-08-06] MEDS: glipiZIDE 5 MG TAB PO SCH (16:48)
[2018-08-06] MEDS: Nicotine 7 MG PATCH TD SCH (21:01)
[2018-08-07] MEDS ORDERED: Sodium Chloride Irrig Solution 250 ML BOT ONE (06:45)
[2018-08-07] MEDS: metFORMIN 500 MG TAB PO SCH ×2 (07:56→17:05)
[2018-08-07] MEDS: glipiZIDE 5 MG TAB PO SCH ×2 (07:56→17:05)
[2018-08-07] MEDS: Amoxicillin/Potassium Clav 875 MG TAB PO SCH (08:07)
[2018-08-07] MEDS: Amlodipine 5 MG TAB PO SCH (08:08)
[2018-08-07] MEDS: Lisinopril 10 MG TAB PO SCH (08:08)
[2018-08-07] MEDS: Enoxaparin Sodium 30 MG/0.3 ML SYRINGE SC SCH (08:08)
[2018-08-07] MEDS: Famotidine 20 MG TAB PO SCH (08:08)
[2018-08-07] MEDS: Ciprofloxacin 500 MG TAB PO SCH (08:08)
[2018-08-07 08:31] VITALS: BP 135/82; TEMP 97.5
--- NOTE | 2018-08-08 04:51 | DIS ---
DATE OF ADMISSION: 07/31/2018 DATE OF DISCHARGE: 08/07/2018 PRIMARY CARE PHYSICIAN: Dr. Vivien Tijerina as his new PCP. DISCHARGE DISPOSITION: Back home. DISCHARGE DIAGNOSES: 1. Diabetic toe infection. 2. Right toe osteomyelitis, status post amputation. 3. Gait instability. 4. New onset diabetes. 5. Hypertension. 6. Depression with anxiety. 7. Tobacco abuse. 8. Vertigo, resolved. DISCHARGE MEDICATIONS: 1. Cipro 500 b.i.d. x7 days. 2. Augmentin 1 tab b.i.d. x7 days. 3. Amlodipine 5 daily. 4. Glipizide 5 mg b.i.d. 5. Metformin 1000 mg b.i.d. 6. Lisinopril 10 mg b.i.d. 7. Tramadol 50 mg q.6 hours p.r.n. 8. Zoloft 25 mg daily. DISCHARGE INSTRUCTIONS: Follow up with primary care physician within 1 week. Follow up with Dr. Mcdaniels on August 19, 2018 at 11 a.m. Follow up with surgeon Dr. Luna on 08/19/2018. Keep wound dry. Daily dressing changes. DISCHARGE DIET: Follow a strict diabetic ADA diet. BRIEF HOSPITAL COURSE: Mr. Rosetta Malhotra is a 48-year-old male who was admitted to [facility] on July 22, 2018 due to osteomyelitis of his right great toe. The patient was also noted to have uncontrolled diabetes. He was seen by ID specialist and surgeon. Initially, the patient was started on IV antibiotic and was to be maintained on this for a long time, but a decision was made to go ahead and amputate his right great toe. This was done July 30. The patient tolerated the procedure well and was transferred for skilled rehabilitation at [facility] in [place]. During hospitalization at [place], the patient was noted to be very anxious about discharge and care for himself and his wound. He was worried about transportation, financial struggles, and was noted to be depressed due to all his family being in [place], he may not have any transportation, project financial analyst, or a clean apartment. The patient was able to participate in physical therapy. He tolerated physical therapy well. He was able to ambulate without a walker. On day of discharge, the patient was able to ambulate about 600 feet using crutches to his axillary. The patient, during hospitalization, was showed how to change and clean his dressings. He had multiple education on how to follow diabetic diet. The patient had complained his house was unkempt and one of the furniture mechanic went to check out his apartment and noted he had some sewage issues, which they were able to get [facility] locally to help him with his plumbing prior to discharge. The patient was noted to be depressed and started on Zoloft, which started helping him slowly. He continued antibiotic. Prior to transfer to [place], his IV antibiotic was changed to oral antibiotic and he continues on the Cipro and Augmentin, and tolerating this fine. His wound is healing with stitches still in place nicely. The patient is to follow up with Dr. Mcdaniels and Dr. Luna on the . The patient does not have a PCP and will be following up with me next week for close monitoring and continuation of care. [facility] is able to help him with his discharge medications and some financial assistance. The patient is not able to get meals on wheels due to his insurance and his age. The patient felt a little bit better to be discharged home. On date of discharge, his temperature 97.5, pulse 83, respirations 19, O2 saturation 97% on room air, blood pressure 132/75. The patient's total time in preparation of this discharge summary and evaluation of the patient, it is total of 35 minutes. The patient is a full code. Job ID: [id number]
== END 2018-08-07 17:15 | disposition home or self-care (01) | DRG 561 ==
LOC: MADMS 16:11
PROVIDERS: ADMIT Family Medicine; ATTEND Family Medicine
DX: Z47.81 Encounter for orthopedic aftercare following surgical amputation (principal); I10 Essential (primary) hypertension; R42 Dizziness and giddiness; F17.210 Nicotine dependence, cigarettes, uncomplicated; E11.9 Type 2 diabetes mellitus without complications; R26.89 Other abnormalities of gait and mobility; F41.8 Other specified anxiety disorders; Z91.19 Patient's noncompliance with other medical treatment and regimen; Z90.89 Acquired absence of other organs; Z98.890 Other specified postprocedural states; Z79.82 Long term (current) use of aspirin; Z79.84 Long term (current) use of oral hypoglycemic drugs; Z79.899 Other long term (current) drug therapy
CPT/HCPCS: 36415; 36416; 80053; 83036; 85025; 97602; J1650

== ENCOUNTER 2018-10-19 19:10 | Emergency (ER) | payer OTHER | END 2018-10-19 21:00 | disposition home or self-care (01) | LOC: MADERS 19:10 | DX: S90.425A Blister (nonthermal), left lesser toe(s), initial encounter (principal); I10 Essential (primary) hypertension; E11.9 Type 2 diabetes mellitus without complications; F17.210 Nicotine dependence, cigarettes, uncomplicated; Z79.84 Long term (current) use of oral hypoglycemic drugs; Z79.899 Other long term (current) drug therapy; X58.XXXA Exposure to other specified factors, initial encounter | CPT/HCPCS: 36416; 93005 ==

== ENCOUNTER 2019-03-06 16:40 | Emergency (ER) | payer OTHER ==
[2019-03-06] MEDS ORDERED: Bacitracin 1 PK ONE (17:05)
[2019-03-06] MEDS ORDERED: Cephalexin 500 MG CAP ONE (17:39)
== END 2019-03-06 17:51 | disposition home or self-care (01) ==
LOC: MADERS 16:40
DX: S91.101A Unspecified open wound of right great toe without damage to nail, initial encounter (principal); E11.9 Type 2 diabetes mellitus without complications; I10 Essential (primary) hypertension; F41.9 Anxiety disorder, unspecified; F32.9 Major depressive disorder, single episode, unspecified; F17.210 Nicotine dependence, cigarettes, uncomplicated; Z79.899 Other long term (current) drug therapy; Z79.84 Long term (current) use of oral hypoglycemic drugs; X58.XXXA Exposure to other specified factors, initial encounter
CPT/HCPCS: 99283